=== PATIENT | female | born 1950 | race Caucasian/White ===

== ENCOUNTER → 2018-05-17 13:16 | Outpatient (CLI) | payer MEDICARE, SELFPAY ==
[2018-05-17 14:23] LABS: Alanine Aminotransferase 20 IU/L (9-52); Albumin 4.4 g/dL (3.5-5.0); Albumin Globulin Ratio 1.5 (1.0-2.8); Alkaline Phosphatase 125 U/L (38-126); Aspartate Aminotransferase 17 IU/L (14-36); Bilirubin Total 0.8 mg/dL (0.2-1.3); Blood Urea Nitrogen 20 mg/dL (7-17); Calcium 9.6 mg/dL (8.4-10.2); Carbon Dioxide 30 mmol/L (22-32); Chloride 99 mmol/L (98-107); Cholesterol 158 mg/dL (140-199); Estimated Glomerular Filt Rate > 60.0 mL/min (>60); Globulin 2.9 g/dL (1.7-4.1); Glucose 139 mg/dL (80-110); HDL Cholesterol 42 mg/dL (40-60); HEMOLYSIS < 15 (0-50); LDL Cholesterol Calculated 85 mg/dL (<100); Potassium 4.2 mmol/L (3.4-5.1); Sodium 140 mmol/L (137-145); Total Protein 7.3 g/dL (6.3-8.2); Triglycerides 155 mg/dL (35-150)
[2018-05-17 14:27] LABS: Hemoglobin A1C% w Est Avg Glu 7.3 % (4.0-6.0)
== END ==
PROVIDERS: Family Provider Physician Assistant; PCP Physician Assistant; Visit Provider Physician Assistant
DX: I10 Essential (primary) hypertension (principal); E78.2 Mixed hyperlipidemia; E11.9 Type 2 diabetes mellitus without complications
CPT/HCPCS: 36415; 80053; 80061; 83036

== ENCOUNTER 2018-07-01 17:57 | Emergency (ER) | payer MEDICARE, SELFPAY ==
[2018-07-01 18:07] VITALS: BP 148/80; PULSE 89; RESP 18; TEMP 37.7; O2SAT 95; BMI 34.3
[2018-07-01 19:51] VITALS: BP 154/81; PULSE 80; RESP 16; TEMP 37.9; O2SAT 100
[2018-07-01] MEDS: PENICILLIN 250 MG TAB PREPACK 1 BOTTLE MISC (20:04)
--- NOTE | 2018-07-02 05:56 | ED_ITS ---
HPI - Dental/Oral General Chief complaint: Dental/Oral Stated complaint: ABCESS TOOTH Time Seen by Provider: 07/01/18 18:05 Source: patient Mode of arrival: ambulatory Limitations: no limitations History of Present Illness HPI Narrative: 68F with extensive dental history presents with L sided dental pain and facial swelling. Patient denies any fever or chills. This has been worsening over the past few days and the patient plans to find a dentist shortly MD Complaint: tooth pain 2 1. Onset (ago): day(s) Duration: constant Severity: mild Relieving factors: nothing Exacerbating factors: nothing Context: history of dental caries and poor dental care Treatment prior to arrival: none Related Data Home Medications Medication Instructions Recorded Confirmed [BACLOFEN] 10 mg PO PRN PRN #0 12/22/16 hydrocodone-acetaminophen 0 tab PO Q6HP PRN #0 12/22/16 morphine 15 mg PO TID #0 12/22/16 Previous Rx's Medication Instructions Recorded Spacer: Inhaler Spacer Device ea BID #1 10/12/16 pneumoc 13-jing conj-dip cr(PF) 0.5 ml IM X1 #1 ea 10/12/16 [Prevnar 13 (PF)] zoster vaccine live (PF) [Zostavax 0.5 ml SQ X1 #0.5 ml 10/12/16 (PF)] fluticasone [Flovent HFA] 1 puff INH Q12H #1 inh 10/17/16 albuterol sulfate [Ventolin HFA] 2 puff INH Q4-6HP PRN #1 ea 10/19/16 CPAP: CPAP/PAP Full Face Mask ea #1 12/25/16 metformin [Glucophage] 500 mg PO BIDCC #60 tab 06/13/17 atorvastatin [Lipitor] 20 mg PO HS #90 tab 07/26/17 duloxetine 30 mg PO QDAY #90 cap 08/23/17 lamotrigine [Lamictal] 300 mg PO Q DAY #135 tab 08/23/17 Glucose: Test Strips 0 str BID #60 str 10/03/17 Lancet: Device 0 dev BID #200 10/03/17 hydrochlorothiazide 12.5 mg PO BID #90 tab 10/12/17 levothyroxine 137 mcg PO QDAY #30 tab 11/16/17 cholecalciferol (vitamin D3) 1,000 iu PO QDAY #100 tab 12/20/17 [Vitamin D3] trazodone 100 mg tablet 100 - 300 mg PO HS #60 tab 04/18/18 duloxetine 60 mg capsule,delayed 60 mg PO QDAY #90 cap 05/11/18 release omeprazole 20 mg PO BID #60 cap 06/01/18 penicillin V potassium 500 mg PO QID #28 tab 07/01/18 Allergies Allergy/AdvReac Type Severity Reaction Status Date / Time No Known Drug Allergies Allergy Verified 07/01/18 18:10 Review of Systems Review of Systems All systems reviewed & are unremarkable except as noted in HPI and below Constitutional Denies chills, Denies fever(s), Denies lethargy and Denies weakness Eyes Denies change in vision, Denies eye discharge, Denies irritation and Denies loss of vision ENT Ears, Nose, Mouth, and Throat: Denies change in voice, Reports dental pain, Reports facial pain, Denies neck pain and Denies sore throat Cardiovascular Denies chest pain, Denies irregular heart rhythm, Denies lightheadedness, Denies palpitations, Denies dyspnea, Denies dyspnea on exertion and Denies orthopnea Respiratory Denies cough, Denies dyspnea, Denies dyspnea on exertion and Denies wheezing Gastrointestinal Gastrointestinal: Denies abdominal pain, Denies change in bowel habits, Denies diarrhea, Denies nausea and Denies vomiting Genitourinary Denies hematuria, Denies flank pain, Denies urinary incontinence and Denies urinary urgency Musculoskeletal Denies neck pain Integumentary/Breasts Denies pruritus, Denies erythema, Denies rash and Denies wounds Neurologic Denies confusion, Denies loss of vision and Denies weakness Psychiatric Denies anxiety, Denies confusion, Denies depression, Denies homicidal ideation and Denies suicidal ideation Endocrine Denies palpitations Hematologic/Lymphatic Denies easy bruising Allergic/Immunologic Denies wheezing PFSH Social History Smoking Status: Never smoker Exam Narrative Exam Narrative: GEN: AOx3 and in mild distress FACE: very mild L facial swelling without warmth or redness ORAL: poor dentition throughout, but no obvious abscess EYES: Pupils are equal, round, and reactive to light and accommodation. Extraoccular muscles are intact bilaterally. There is no subconjunctival hemorrhage or exudate. CHEST: Lungs are clear to auscultation bilaterally and free of wheezes, rales, or rhonchi. Heart rate is regular rhythm, there are no murmurs, clicks, rubs, or gallops. There is no chest wall tenderness. ABD: Abdomen is soft and nontender. There is no guarding or rebound. Bowel sounds are normal in all 4 quadrants. There is no mass or organomegaly. EXT: Full painless ROM of all extremities with no loss of sensation or strength. SKIN: Warm, pink, and dry. No erythema or rash Initial Vital Signs Initial Vital Signs: Vital Signs Temperature 99.9 F H 07/01/18 18:07 Pulse Rate 89 07/01/18 18:07 Respiratory Rate 18 07/01/18 18:07 Blood Pressure 148/80 H 07/01/18 18:07 Pulse Oximetry 95 07/01/18 18:07 Course Orders Ordered: Discontinued Medications Penicillin V Potassium (Pen Vk (250 Mg/5 Ml) Prepack) 1 bottle MISC SEEINSTR ONE Stop: 07/01/18 19:30 Last Admin: 07/01/18 20:04 Dose: Not Given Penicillin V Potassium (Penicillin Vk 250mg Tab Prepack) 1 bottle MISC SEEINSTR ONE Stop: 07/01/18 19:54 Last Admin: 07/01/18 20:04 Dose: 1 bottle Discharge Plan Departure Patient Disposition: Home Clinical Impression: Abscess, dental Discharge Date/Time: 07/01/18 20:10 Interventions: ED Discharge Assessment Last Done: 07/01/18 20:09 Instructions: DI for Tooth Abscess Activity Restrictions/Additional Instructions: *You have been diagnosed with [ Dental abscess ] *What to do: *Take medications as directed *Follow up with your dental provider in 2-3 days, call for an appointment. Let them know you were seen in the Emergency Department and that we ask that you be seen in follow up *Return to ER if you should have any new, worsening or concerning symptoms Prescriptions: New penicillin V potassium 500 mg tablet 500 mg PO QID Qty: 28 RF: 0 No Action Spacer: Inhaler Spacer Device BID Qty: 1 RF: 0 pneumoc 13-jing conj-dip cr(PF) [Prevnar 13 (PF)] 0.5 ML syringe 0.5 ml IM X1 Qty: 1 RF: 0 zoster vaccine live (PF) [Zostavax (PF)] 19,400 UNIT/0.65 ML suspension for reconstitution 0.5 ml SQ X1 Qty: 0.5 RF: 0 fluticasone [Flovent HFA] 12 GM HFA aerosol inhaler 1 puff INH Q12H Qty: 1 RF: 3 albuterol sulfate [Ventolin HFA] 90 MCG/PUFF HFA aerosol inhaler 2 puff INH Q4-6HP PRNQty: 1 RF: 3 [BACLOFEN] 10 mg PO PRN PRNQty: 0 RF: 0 hydrocodone-acetaminophen 5 MG/325 MG tablet PO Q6HP PRNQty: 0 RF: 0 morphine 15 MG tablet 15 mg PO TID Qty: 0 RF: 0 CPAP: CPAP/PAP Full Face Mask Qty: 1 RF: 0 metformin [Glucophage] 500 MG tablet 500 mg PO BIDCC Qty: 60 RF: 2 atorvastatin [Lipitor] 20 MG tablet 20 mg PO HS Qty: 90 RF: 3 lamotrigine [Lamictal] 200 MG tablet 300 mg PO Q DAY Qty: 135 RF: 3 duloxetine 30 MG capsule,delayed release(DR/EC) 30 mg PO QDAY Qty: 90 RF: 3 Glucose: Test Strips BID Qty: 60 RF: 6 Lancet: Device BID Qty: 200 RF: 3 hydrochlorothiazide 25 MG tablet 12.5 mg PO BID Qty: 90 RF: 3 levothyroxine 137 MCG tablet 137 mcg PO QDAY Qty: 30 RF: 3 cholecalciferol (vitamin D3) [Vitamin D3] 1,000 UNIT tablet 1,000 iu PO QDAY Qty: 100 RF: 3 trazodone 100 mg tablet 100 - 300 mg PO HS Qty: 60 RF: 3 duloxetine 60 mg capsule,delayed release(DR/EC) 60 mg PO QDAY Qty: 90 RF: 0 omeprazole 20 mg capsule,delayed release(DR/EC) 20 mg PO BID Qty: 60 RF: 3 Referrals: Kaylin Paulino PA-C [Primary Care Provider] -
== END 2018-07-01 20:10 | disposition home or self-care (01) ==
PROVIDERS: Emergency Provider Emergency Medicine; Family Provider Physician Assistant; PCP Physician Assistant
DX: K04.7 Periapical abscess without sinus (principal)
CPT/HCPCS: 99282

== ENCOUNTER → 2018-11-02 16:24 | Outpatient (CLI) | payer MEDICARE, SELFPAY ==
[2018-11-02 17:47] LABS: BUN Creatinine Ratio 28.3 (6-22); Blood Urea Nitrogen 17 mg/dL (7-17); Calcium 9.4 mg/dL (8.4-10.2); Carbon Dioxide 30 mmol/L (22-32); Chloride 97 mmol/L (98-107); Estimated Glomerular Filt Rate > 60.0 mL/min (>60); Glucose 141 mg/dL (80-110); HEMOLYSIS < 15 (0-50); Sodium 139 mmol/L (137-145)
[2018-11-02 17:57] LABS: Hemoglobin A1C% w Est Avg Glu 7.5 % (4.0-6.0)
[2018-11-02 18:29] LABS: Microalbumi Creatinin Ratio Ur 10.5 ug/mg CR (<30); Microalbumin Urine Random 0.9 mg/dL (0-1.6)
[2018-11-06 14:41] LABS: Fecal Immunochemical Test DETECTED
== END ==
PROVIDERS: Family Provider Physician Assistant; PCP Physician Assistant; Visit Provider Physician Assistant
DX: E11.65 Type 2 diabetes mellitus with hyperglycemia (principal); Z12.11 Encounter for screening for malignant neoplasm of colon
CPT/HCPCS: 36415; 80048; 82043; 82274; 82570; 83036

== ENCOUNTER → 2019-01-23 16:12 | Outpatient (CLI) | payer MEDICARE, SELFPAY ==
[2019-01-23 18:23] LABS: Blood Urea Nitrogen 16 mg/dL (7-17); Calcium 10.2 mg/dL (8.4-10.2); Carbon Dioxide 30 mmol/L (22-32); Chloride 96 mmol/L (98-107); Estimated Glomerular Filt Rate > 60.0 mL/min (>60); Glucose 131 mg/dL (80-110); HEMOLYSIS < 15 (0-50); Potassium 5.2 mmol/L (3.4-5.1); Sodium 138 mmol/L (137-145)
== END ==
PROVIDERS: Family Provider Physician Assistant; PCP Physician Assistant; Visit Provider Physician Assistant
DX: E11.65 Type 2 diabetes mellitus with hyperglycemia (principal)
CPT/HCPCS: 36415; 80048; 83036

== ENCOUNTER → 2019-07-30 13:10 | Outpatient (CLI) | payer MEDICARE, SELFPAY ==
[2019-07-30 14:31] LABS: Alanine Aminotransferase 20 IU/L (9-52); Albumin 4.6 g/dL (3.5-5.0); Albumin Globulin Ratio 1.4 (1.0-2.8); Alkaline Phosphatase 125 U/L (38-126); Aspartate Aminotransferase 26 IU/L (14-36); Bilirubin Total 0.8 mg/dL (0.2-1.3); Blood Urea Nitrogen 17 mg/dL (7-17); Calcium 9.7 mg/dL (8.4-10.2); Carbon Dioxide 32 mmol/L (22-32); Chloride 98 mmol/L (98-107); Cholesterol 135 mg/dL (140-199); Estimated Glomerular Filt Rate > 60.0 mL/min (>60); Globulin 3.2 g/dL (1.7-4.1); Glucose 129 mg/dL (80-110); HDL Cholesterol 43 mg/dL (40-60); HEMOLYSIS < 15 (0-50); LDL Cholesterol Calculated 71 mg/dL (<100); Potassium 4.2 mmol/L (3.4-5.1); Sodium 138 mmol/L (137-145); Total Protein 7.8 g/dL (6.3-8.2); Triglycerides 103 mg/dL (35-150)
[2019-07-30 16:20] LABS: Creatinine Urine Random 61.8 mg/dL
[2019-07-30 16:28] LABS: Microalbumi Creatinin Ratio Ur 9.7 ug/mg CR (<30); Microalbumin Urine Random < 0.6 mg/dL (0-1.6)
[2019-07-30 16:57] LABS: Thyroid Stimulating Hormone 2.42 uIU/mL (0.47-4.68)
== END ==
PROVIDERS: PCP Physician Assistant; Visit Provider Physician Assistant
DX: E03.9 Hypothyroidism, unspecified (principal); E11.9 Type 2 diabetes mellitus without complications; E78.2 Mixed hyperlipidemia; I10 Essential (primary) hypertension
CPT/HCPCS: 36415; 80053; 80061; 82043; 82570; 83036; 84443

== ENCOUNTER → 2019-11-27 09:28 | Outpatient (CLI) | payer MEDICARE, SELFPAY ==
[2019-11-27 10:13] LABS: Add Manual Diff / Slide Review NO; Basophils Absolute Auto 0 /uL (0-100); Basophils Percent Auto 0.5 % (0-2); Eosinophils Absolute Auto 300 /uL (0-450); Eosinophils Percent Auto 3.6 % (2-4); Hematocrit 33.6 % (36-46); Hemoglobin 10.7 g/dL (12.0-16.0); Lymphocytes Absolute Auto 2000 /uL (1100-4500); Lymphocytes Percent Auto 26.9 % (25-40); Mean Corpuscular HGB Conc 31.8 % (30-36); Mean Corpuscular Hemoglobin 21.9 PG (26-34); Mean Corpuscular Volume 68.9 fL (80-100); Monocytes Absolute Auto 400 /uL (0-900); Monocytes Percent Auto 6.2 % (3-14); Neutrophils Absolute Auto 4600 /uL (1500-7000); Neutrophils Percent Auto 62.8 % (50-75); Platelet Count 377 X10^3/uL (150-400); Red Blood Cell Count 4.88 X10^6/uL (4.0-5.2); Red Cell Distribution Width 17.5 % (11.6-14.8); White Blood Cell Count 7.3 X10^3/uL (4.5-11.0)
[2019-11-27 10:44] LABS: Blood Urea Nitrogen 18 mg/dL (7-17); Calcium 9.8 mg/dL (8.4-10.2); Carbon Dioxide 31 mmol/L (22-32); Chloride 98 mmol/L (98-107); Estimated Glomerular Filt Rate > 60.0 mL/min (>60); Glucose 162 mg/dL (80-110); HEMOLYSIS < 15 (0-50); Potassium 4.5 mmol/L (3.4-5.1); Sodium 138 mmol/L (137-145)
[2019-11-27 11:02] LABS: Anisocytosis 1+
[2019-11-27 11:03] LABS: Hypochromasia 1+; Microcytosis 1+
[2019-11-28 09:18] LABS: Iron 23 ug/dL (37-170)
== END ==
PROVIDERS: PCP Physician Assistant; Visit Provider Physician Assistant
DX: I10 Essential (primary) hypertension (principal); Z51.81 Encounter for therapeutic drug level monitoring; D50.9 Iron deficiency anemia, unspecified
CPT/HCPCS: 36415; 80048; 83540; 85025

== ENCOUNTER → 2020-04-02 16:57 | Outpatient (CLI) | payer MEDICARE, MEDICAID, SELFPAY ==
[2020-04-02 17:49] LABS: Add Manual Diff / Slide Review NO; Basophils Absolute Auto 0 /uL (0-100); Basophils Percent Auto 0.5 % (0-2); Eosinophils Absolute Auto 400 /uL (0-450); Eosinophils Percent Auto 4.5 % (2-4); Hematocrit 38.5 % (36-46); Hemoglobin 12.4 g/dL (12.0-16.0); Lymphocytes Absolute Auto 2600 /uL (1100-4500); Lymphocytes Percent Auto 31.6 % (25-40); Mean Corpuscular HGB Conc 32.1 % (30-36); Mean Corpuscular Hemoglobin 23.4 PG (26-34); Monocytes Absolute Auto 400 /uL (0-900); Monocytes Percent Auto 5.4 % (3-14); Neutrophils Absolute Auto 4700 /uL (1500-7000); Platelet Count 397 X10^3/uL (150-400); Red Blood Cell Count 5.28 X10^6/uL (4.0-5.2); Red Cell Distribution Width 16.8 % (11.6-14.8); White Blood Cell Count 8.1 X10^3/uL (4.5-11.0)
[2020-04-02 18:00] LABS: Alanine Aminotransferase 21 IU/L (<35); Albumin 4.6 g/dL (3.5-5.0); Albumin Globulin Ratio 1.4 (1.0-2.8); Alkaline Phosphatase 123 U/L (38-126); Aspartate Aminotransferase 22 IU/L (14-36); BUN Creatinine Ratio 28.8 (6-22); Bilirubin Total 0.6 mg/dL (0.2-1.3); Blood Urea Nitrogen 15 mg/dL (7-17); Carbon Dioxide 29 mmol/L (22-32); Chloride 99 mmol/L (98-107); Estimated Glomerular Filt Rate > 60.0 mL/min (>60); Globulin 3.2 g/dL (1.7-4.1); Glucose 297 mg/dL (80-110); HEMOLYSIS < 15 (0-50); Potassium 4.3 mmol/L (3.4-5.1); Sodium 137 mmol/L (137-145); Total Protein 7.8 g/dL (6.3-8.2)
[2020-04-02 18:01] LABS: HEMOLYSIS < 15 (0-50); Iron 37 ug/dL (37-170)
[2020-04-02 18:11] LABS: Percent Iron Saturation 8 % (15-50); Total Iron Binding Capacity 467 ug/dL (265-497); Transferrin 379 mg/dL (206-381)
[2020-04-02 18:35] LABS: Ferritin 6 ng/mL (11-264)
== END ==
PROVIDERS: PCP Physician Assistant; Referring Provider Family Medicine; Visit Provider Family Medicine
DX: D50.9 Iron deficiency anemia, unspecified (principal); E78.2 Mixed hyperlipidemia
CPT/HCPCS: 36415; 80053; 82728; 83540; 83550; 85025

== ENCOUNTER → 2020-04-03 13:07 | Outpatient (CLI) | payer MEDICARE, MEDICAID, SELFPAY ==
[2020-04-04 02:56] LABS: Hemoglobin A1C% w Est Avg Glu 8.1 % (4.0-6.0)
== END ==
PROVIDERS: PCP Physician Assistant; Visit Provider Nurse Practitioner Family
DX: E11.65 Type 2 diabetes mellitus with hyperglycemia (principal)
CPT/HCPCS: 83036

== ENCOUNTER → 2020-10-09 16:12 | Outpatient (CLI) | payer MEDICARE, MEDICAID, SELFPAY ==
[2020-10-09 17:16] LABS: Hemoglobin A1C% w Est Avg Glu 6.6 % (4.0-6.0)
[2020-10-09 17:46] LABS: Alanine Aminotransferase 38 IU/L (<35); Albumin 4.5 g/dL (3.5-5.0); Albumin Globulin Ratio 1.4 (1.0-2.8); Alkaline Phosphatase 167 U/L (38-126); Aspartate Aminotransferase 30 IU/L (14-36); BUN Creatinine Ratio 36.5 (6-22); Bilirubin Total 0.7 mg/dL (0.2-1.3); Blood Urea Nitrogen 19 mg/dL (7-17); Calcium 9.8 mg/dL (8.4-10.2); Carbon Dioxide 31 mmol/L (22-32); Chloride 98 mmol/L (98-107); Estimated Glomerular Filt Rate > 60.0 mL/min (>60); Globulin 3.3 g/dL (1.7-4.1); Glucose 110 mg/dL (80-110); HEMOLYSIS < 15 (0-50); Potassium 4.2 mmol/L (3.4-5.1); Sodium 136 mmol/L (137-145); Total Protein 7.8 g/dL (6.3-8.2)
[2020-10-09 18:07] LABS: Creatinine Urine Random 56.8 mg/dL
[2020-10-09 18:14] LABS: Microalbumin Urine Random < 0.6 mg/dL (0-1.6)
[2020-10-09 18:16] LABS: Thyroid Stimulating Hormone 1.73 uIU/mL (0.47-4.68)
== END ==
PROVIDERS: PCP Family Medicine; Referring Provider Family Medicine; Visit Provider Family Medicine
DX: E03.9 Hypothyroidism, unspecified (principal); E11.65 Type 2 diabetes mellitus with hyperglycemia; I10 Essential (primary) hypertension
CPT/HCPCS: 36415; 80053; 82043; 82570; 83036; 84443

== ENCOUNTER → 2021-04-05 09:16 | Outpatient (CLI) | payer MEDICARE, MEDICAID, SELFPAY ==
[2021-04-05 10:32] LABS: Hemoglobin A1C% w Est Avg Glu 6.5 % (4.0-6.0)
[2021-04-05 10:33] LABS: Add Manual Diff / Slide Review NO; Basophils Absolute Auto 0 /uL (0-100); Basophils Percent Auto 0.4 % (0-2); Eosinophils Absolute Auto 300 /uL (0-450); Eosinophils Percent Auto 3.1 % (2-4); Hematocrit 38.1 % (36-46); Hemoglobin 12.2 g/dL (12.0-16.0); Lymphocytes Absolute Auto 2100 /uL (1100-4500); Lymphocytes Percent Auto 23.3 % (25-40); Mean Corpuscular HGB Conc 32.2 % (30-36); Mean Corpuscular Hemoglobin 25.5 PG (26-34); Mean Corpuscular Volume 79.4 fL (80-100); Monocytes Absolute Auto 700 /uL (0-900); Neutrophils Absolute Auto 5900 /uL (1500-7000); Neutrophils Percent Auto 65.2 % (50-75); Platelet Count 376 X10^3/uL (150-400); Red Cell Distribution Width 17.3 % (11.6-14.8); White Blood Cell Count 9.1 X10^3/uL (4.5-11.0)
[2021-04-05 10:45] LABS: Alanine Aminotransferase 29 IU/L (<35); Albumin 4.2 g/dL (3.5-5.0); Albumin Globulin Ratio 1.4 (1.0-2.8); Alkaline Phosphatase 112 U/L (38-126); Aspartate Aminotransferase 39 IU/L (14-36); BUN Creatinine Ratio 41.2 (6-22); Bilirubin Total 0.5 mg/dL (0.2-1.3); Blood Urea Nitrogen 21 mg/dL (7-17); Calcium 9.5 mg/dL (8.4-10.2); Carbon Dioxide 32 mmol/L (22-32); Chloride 96 mmol/L (98-107); Cholesterol 143 mg/dL (140-199); Estimated Glomerular Filt Rate > 60.0 mL/min (>60); Globulin 2.9 g/dL (1.7-4.1); Glucose 128 mg/dL (80-110); HDL Cholesterol 41 mg/dL (40-60); HEMOLYSIS < 15 (0-50); LDL Cholesterol Calculated 64 mg/dL (<100); Potassium 4.1 mmol/L (3.4-5.1); Sodium 136 mmol/L (137-145); Total Protein 7.1 g/dL (6.3-8.2); Triglycerides 191 mg/dL (35-150)
[2021-04-05 11:29] LABS: Thyroid Stimulating Hormone 2.55 uIU/mL (0.47-4.68)
== END ==
PROVIDERS: PCP Family Medicine; Referring Provider Family Medicine; Visit Provider Family Medicine
DX: E03.9 Hypothyroidism, unspecified (principal); E11.65 Type 2 diabetes mellitus with hyperglycemia; I10 Essential (primary) hypertension
CPT/HCPCS: 36415; 80053; 80061; 83036; 84443; 85025

== ENCOUNTER → 2021-10-15 07:57 | Outpatient (CLI) | payer MEDICARE, MEDICAID, SELFPAY ==
[2021-10-15 08:54] LABS: Hemoglobin A1C% w Est Avg Glu 5.9 % (4.0-6.0)
[2021-10-15 09:24] LABS: Alanine Aminotransferase 15 IU/L (<35); Albumin 4.4 g/dL (3.5-5.0); Albumin Globulin Ratio 1.8 (1.0-2.8); Alkaline Phosphatase 83 U/L (38-126); Aspartate Aminotransferase 18 IU/L (14-36); BUN Creatinine Ratio 33.3 (6-22); Bilirubin Total 0.4 mg/dL (0.2-1.3); Blood Urea Nitrogen 20 mg/dL (7-17); Calcium 9.7 mg/dL (8.4-10.2); Carbon Dioxide 31 mmol/L (22-32); Chloride 101 mmol/L (98-107); Estimated Glomerular Filt Rate > 60.0 mL/min (>60); Globulin 2.5 g/dL (1.7-4.1); Glucose 132 mg/dL (80-110); HEMOLYSIS < 15 (0-50); Potassium 3.8 mmol/L (3.4-5.1); Sodium 140 mmol/L (137-145); Total Protein 6.9 g/dL (6.3-8.2)
[2021-10-15 09:30] LABS: Free T4, Direct Thyroxine 1.57 ng/dL (0.78-2.19)
[2021-10-15 09:44] LABS: Thyroid Stimulating Hormone 1.91 uIU/mL (0.47-4.68)
== END ==
PROVIDERS: PCP Family Medicine; Referring Provider Family Medicine; Visit Provider Family Medicine
DX: E11.65 Type 2 diabetes mellitus with hyperglycemia (principal); E03.9 Hypothyroidism, unspecified; E78.2 Mixed hyperlipidemia; I10 Essential (primary) hypertension
CPT/HCPCS: 36415; 80053; 83036; 84439; 84443

== ENCOUNTER → 2022-05-13 11:06 | Outpatient (CLI) | payer MEDICARE, MEDICAID, SELFPAY ==
[2022-05-13 11:34] LABS: Hemoglobin A1C% w Est Avg Glu 6.6 % (4.0-6.0)
[2022-05-13 12:16] LABS: Creatinine Urine Random 39.4 mg/dL
[2022-05-13 12:18] LABS: Alanine Aminotransferase 34 IU/L (<35); Albumin 4.2 g/dL (3.5-5.0); Albumin Globulin Ratio 1.6 (1.0-2.8); Alkaline Phosphatase 137 U/L (38-126); Aspartate Aminotransferase 23 IU/L (14-36); BUN Creatinine Ratio 27.8 (6-22); Bilirubin Total 0.6 mg/dL (0.2-1.3); Blood Urea Nitrogen 15 mg/dL (7-17); Calcium 9.3 mg/dL (8.4-10.2); Carbon Dioxide 32 mmol/L (22-32); Chloride 100 mmol/L (98-107); Estimated Glomerular Filt Rate > 60 mL/min (>60); Globulin 2.6 g/dL (1.7-4.1); Glucose 132 mg/dL (80-110); HEMOLYSIS < 15 (0-50); Potassium 4.2 mmol/L (3.4-5.1); Sodium 138 mmol/L (137-145); Total Protein 6.8 g/dL (6.3-8.2)
[2022-05-13 12:22] LABS: Microalbumin Urine Random < 0.6 mg/dL (0-1.6)
== END ==
PROVIDERS: PCP Family Medicine; Referring Provider Family Medicine; Visit Provider Family Medicine
DX: E11.65 Type 2 diabetes mellitus with hyperglycemia (principal); I10 Essential (primary) hypertension
CPT/HCPCS: 36415; 80053; 82043; 82570; 83036

== ENCOUNTER → 2022-12-20 10:36 | Outpatient (CLI) | payer MEDICARE, MEDICAID, SELFPAY ==
[2022-12-20 12:47] LABS: Hemoglobin A1C% w Est Avg Glu 6.7 % (4.0-6.0)
[2022-12-20 13:13] LABS: Alanine Aminotransferase 17 IU/L (<35); Albumin 4.3 g/dL (3.5-5.0); Albumin Globulin Ratio 1.4 (1.0-2.8); Alkaline Phosphatase 97 U/L (38-126); Aspartate Aminotransferase 19 IU/L (14-36); BUN Creatinine Ratio 40.4 (6-22); Bilirubin Total 0.4 mg/dL (0.2-1.3); Blood Urea Nitrogen 19 mg/dL (7-17); Calcium 8.8 mg/dL (8.4-10.2); Carbon Dioxide 30 mmol/L (22-32); Chloride 99 mmol/L (98-107); Estimated Glomerular Filt Rate > 60 mL/min (>60); Glucose 116 mg/dL (80-110); HEMOLYSIS < 15 (0-50); Potassium 3.7 mmol/L (3.4-5.1); Sodium 138 mmol/L (137-145); Total Protein 7.3 g/dL (6.3-8.2)
== END ==
PROVIDERS: PCP Family Medicine; Referring Provider Family Medicine; Visit Provider Family Medicine
DX: E11.65 Type 2 diabetes mellitus with hyperglycemia (principal)
CPT/HCPCS: 36415; 80053; 83036

== ENCOUNTER 2023-05-29 14:34 | Emergency (ER) | payer MEDICARE, MEDICAID, SELFPAY ==
[2023-05-29 14:43] VITALS: BP 145/67; PULSE 65; RESP 18; TEMP 36.7; O2SAT 95
--- NOTE | 2023-05-29 15:00 | DI.CT.S_ITS ---
PROCEDURE: CT HEAD/BRAIN WO CON INDICATIONS: fall, hit head TECHNIQUE: Noncontrast 4.5 mm thick angled axial sections acquired from the foramen magnum to the vertex, with coronal and sagittal reformats. For radiation dose reduction, the following was used: automated exposure control, adjustment of mA and/or kV according to patient size. COMPARISON: None. FINDINGS: Image quality: Excellent. CSF spaces: Basal cisterns are patent. No extra-axial fluid collections. The ventricles are symmetric in size and shape. Brain: There is a small focus of hyperdensity in the inferior right frontal lobe just cranial to the orbit, potentially a small intraparenchymal contusion. No other hemorrhage is seen. There is cerebral volume loss for age, with resultant ventricular and sulcal prominence. There are periventricular and deep white matter chronic small vessel ischemic changes. There is intracranial internal carotid artery atherosclerosis. Skull and face: Small left occipital subcutaneous hematoma without underlying fracture. Sinuses: Visualized sinuses and mastoids are clear. IMPRESSION: 1. Questionable small focus of intraparenchymal hemorrhage without adjacent edema involving the right inferior frontal lobe, potentially representing a contrecoup injury. Given that artifact is also possible, close clinical follow-up and repeat head CT in 4-6 hours is recommended. 2. Discussed with Dr. Jimenez in the emergency room at 15:58 hours. Dictated by: Dana Jenkins M.D. on 05/29/2023 at 15:51 Approved by: Dana Jenkins M.D. on 05/29/2023 at 16:00
--- NOTE | 2023-05-29 15:00 | DI.CT.S_ITS ---
PROCEDURE: CT CERVICAL SPINE WO CON INDICATIONS: fall, hit head TECHNIQUE: Noncontrast 3 mm thick sections acquired from the skull base to the T4 level. Sagittal and coronal reformats were then constructed. For radiation dose reduction, the following was used: automated exposure control, adjustment of mA and/or kV according to patient size. COMPARISON: None. FINDINGS: Image quality: Excellent. Bones: No fractures or dislocations. Visualized superior ribs are intact. Prominent anterior and mild posterior endplate spurring of C5 through C7. Soft tissues: Prevertebral soft tissues are normal in thickness. No paravertebral hematomas. No apical pneumothoraces. IMPRESSION: 1. No CT evidence of acute cervical spine trauma. 2. Degenerative endplate spurring in the mid to lower thoracic spine. Dictated by: Dana Jenkins M.D. on 05/29/2023 at 16:00 Approved by: Dana Jenkins M.D. on 05/29/2023 at 16:03
--- NOTE | 2023-05-29 17:41 | ED.FALL ---
HPI - Fall <Talia Saleem PA-C - Last Filed: 05/29/23 19:54> General Chief Complaint: Fall Stated Complaint: SENT BY [facility]/HEAD INJ Time Seen by Provider: 05/29/23 14:38 History of Present Illness HPI Narrative: 73-year-old woman with history of DM type II, hypertension and hypothyroid presents from the walk-in clinic with concern for a fall with head injury 2 days ago. Patient states she was at home and she thinks she had a mechanical fall and went backwards striking the middle back of her head against the ?corner of a wall. She states she did not lose consciousness and was able to get up just fine on her own, she has not had any symptoms since then except for mild discomfort and tenderness at the site where her head hit the wall--where she has some swelling and ?a goose egg?. She states she was concerned that she might have a concussion so she went to the walk-in clinic who sent her to the emergency department for further evaluation given her age and the fact that she had head injury. She specifically denies nausea, vomiting, headaches, vision change, neck pain, numbness or tingling or weakness in her extremities, light sensitivity, coordination difficulty or any other symptoms. Related Data Home Medications Medication Instructions Recorded Confirmed [BACLOFEN] 10 mg PO PRN PRN ##0 12/22/16 02/20/23 Aspirin See Rx Instructions .Route .COMPLEX 07/16/18 02/20/23 Gabapentin See Rx Instructions .Route .COMPLEX 07/16/18 02/20/23 Hydrocodone 5 mg / Acetaminophen See Rx Instructions .Route .COMPLEX 07/16/18 02/20/23 325 mg diclofenac sodium [Arthritis Pain topical 07/21/22 02/20/23 (diclofenac)] lidocaine [Blue-Emu Lidocaine topical 07/21/22 02/20/23 Patch] morphine 15 mg immediate release 15 mg PO BID #0 tabs 07/21/22 02/20/23 tablet valacyclovir 500 mg tablet 1,000 mg PO BID Herpes zoster in 07/21/22 02/20/23 right eye Previous Rx's Medication Instructions Recorded Spacer: Inhaler Spacer Device ea BID ##1 10/12/16 CPAP: CPAP/PAP Full Face Mask ea ##1 12/25/16 Disabled Parking Placard #1 ea 11/27/19 lancets #100 ea 06/22/21 terbinafine HCl 250 mg tablet 250 mg PO DAILY #90 tabs 06/22/21 lamotrigine 200 mg tablet 200 mg PO BID #180 tabs 06/21/22 (Lamictal) albuterol sulfate 90 mcg/actuation 2 puff inhalation Q6H PRN 07/21/22 aerosol inhaler shortness of breath or wheezing #6.7 grams empagliflozin 10 mg tablet 10 mg PO DAILY #90 tabs 07/21/22 (Jardiance) fluticasone propionate 110 2 puff inhalation BID PRN Asthma 07/21/22 mcg/actuation HFA aerosol inhaler #12 grams (Flovent HFA) hydrochlorothiazide 25 mg tablet See Rx Instructions .Route 07/21/22 .COMPLEX #90 ea pioglitazone 15 mg tablet See Rx Instructions .Route 07/21/22 .COMPLEX #90 tabs atorvastatin 20 mg tablet See Rx Instructions .Route 01/27/23 .COMPLEX #90 tabs Glucose Test Strips #100 ea 01/31/23 duloxetine 60 mg capsule,delayed See Rx Instructions .Route 01/31/23 release .COMPLEX #90 caps duloxetine 30 mg capsule,delayed See Rx Instructions .Route 02/24/23 release .COMPLEX #90 caps omeprazole 20 mg capsule,delayed See Rx Instructions .Route 02/27/23 release .COMPLEX #180 caps levothyroxine 137 mcg tablet See Rx Instructions .Route 02/28/23 .COMPLEX #90 tabs trazodone 100 mg tablet See Rx Instructions .Route 03/24/23 .COMPLEX #60 caps sitagliptin phosphate 50 See Rx Instructions .Route 05/01/23 mg-metformin 1,000 mg tablet .COMPLEX #180 tabs (Janumet) Allergies Allergy/AdvReac Type Severity Reaction Status Date / Time No Known Drug Allergies Allergy Verified 05/29/23 14:43 Review of Systems <Talia Saleem PA-C - Last Filed: 05/29/23 19:54> Review of Systems Narrative: See HPI Patient History <Talia Saleem PA-C - Last Filed: 05/29/23 19:54> Medical History (Updated 05/29/23 @ 23:34 by Amanda Christianson MD) Bipolar disorder Cataracts, bilateral (~07/2017) Chronic back pain Chronic GERD Depression Diabetes Hyperlipemia Hypertension Hypothyroidism Osteopenia (~01/2018) Scoliosis Sleep apnea Surgical History History of carpal tunnel release (1981) Hx of cholecystectomy (1988) Hx of hysterectomy (1994) Hx of spinal fusion (1963) Family History Father Marfan syndrome Mother Hypertension Dementia Brother Depression Chronic pain Sister Diabetes mellitus Sister Marfan syndrome Grandfather Alcoholism Grandmother No problems noted. Grandfather Marfan syndrome Grandmother Hip problem Social History Smoking Status: Never smoker second hand exposure: No alcohol intake: current (one beer a year.) substance use type: does not use Smoking Status: Never smoker alcohol intake frequency: 0-2 drinks per day Substance Use Type: does not use Exam <Talia Saleem PA-C - Last Filed: 05/29/23 19:54> Narrative Exam Narrative: GENERAL: 73 year old patient appears stated age. Well-developed patient, in mild distress. HEAD: There is an approximately 2 cm x 2 cm raised area that is tender on the patient's posterior mid scalp, difficult to visualize due to hair in the area, consistent with a scalp hematoma Otherwise Atraumatic. Normocephalic. EYES: Pupils equal round and reactive. Extraocular motions intact. No scleral icterus. No injection or drainage. ENT: Nose without bleeding, purulent drainage. Throat without erythema, tonsillar hypertrophy or exudate. Uvula midline. Airway patent. NECK: Trachea midline. Non tender CARDIOVASCULAR: Regular rate and rhythm without murmurs, gallops, or rubs. RESPIRATORY: Clear to auscultation. Breath sounds equal bilaterally. No wheezes, rales, or rhonchi. GASTROINTESTINAL: Abdomen soft, non-tender, nondistended. EXTREMITIES: No edema or joint tenderness. BACK: Nontender without deformity or crepitance. No flank tenderness. NEURO: AOx3. Cranial nerves 2-12 intact. 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 and strength bilaterally in all 4 extremities, negative arm drift SKIN: No rash or erythema of visible areas Initial Vital Signs Initial Vital Signs: Vital Signs Temperature 98.1 F 07/31/23 14:43 Pulse Rate 65 05/29/23 14:43 Respiratory Rate 18 05/29/23 14:43 Blood Pressure 145/67 H 05/29/23 14:43 Pulse Oximetry 95 05/29/23 14:43 Oxygen Delivery Method Room Air 05/29/23 14:43 <Amanda Christianson MD - Last Filed: 05/29/23 23:36> Initial Vital Signs Initial Vital Signs: Vital Signs Temperature 98.1 F 05/29/23 14:43 Pulse Rate 65 05/29/23 14:43 Respiratory Rate 18 05/29/23 14:43 Blood Pressure 145/67 H 05/29/23 14:43 Pulse Oximetry 95 05/29/23 14:43 Oxygen Delivery Method Room Air 05/29/23 14:43 Course <Talia Saleem PA-C - Last Filed: 05/29/23 19:54> Course Course Narrative: Report and hand off care to night attending physician Dr. Christianson who remains on shift in the emergency department with repeat CT noncontrast pending for 2099. 1954 Orders Ordered: ED Orders 05/29/23 15:00 CT cervical spine wo con Stat CT head/brain wo con Stat 05/29/23 21:00 CT head/brain wo con Stat Vital Signs Vital signs: Vital Signs - 8 hr 05/29/23 18:52 05/29/23 18:52 05/29/23 20:40 Pulse Rate 58 L 63 Respiratory Rate 16 Blood Pressure 118/58 L 126/60 Pulse Oximetry 97 95 Oxygen Delivery Method Room Air Room Air 05/29/23 22:03 Pulse Rate 61 Respiratory Rate 16 Blood Pressure 135/60 Pulse Oximetry 96 Oxygen Delivery Method Room Air <Amanda Christianson MD - Last Filed: 05/29/23 23:36> Orders Ordered: ED Orders 05/29/23 15:00 CT cervical spine wo con Stat CT head/brain wo con Stat 05/29/23 21:00 CT head/brain wo con Stat Vital Signs Vital signs: Vital Signs - 8 hr 05/29/23 18:52 05/29/23 18:52 05/29/23 20:40 Pulse Rate 58 L 63 Respiratory Rate 16 Blood Pressure 118/58 L 126/60 Pulse Oximetry 97 95 Oxygen Delivery Method Room Air Room Air 05/29/23 22:03 Pulse Rate 61 Respiratory Rate 16 Blood Pressure 135/60 Pulse Oximetry 96 Oxygen Delivery Method Room Air MDM - Fall <Talia Saleem PA-C - Last Filed: 05/29/23 19:54> Differential Diagnosis Differential diagnosis: Likely concussion without loss of consciousness and other (Intraparenchymal hemorrhage, scalp hematoma) Medical Records Attestation: I reviewed the patient's medical records. Imaging Data CT scan - head: My Impression: Agree with Radiology interpretation Radiologist's Impression: [address] [address] [address] Scan Report Signed Patient: Mary Hubbard MR#: [id number] : 1950 Acct:[id number] Age/Sex: 73 / F Date of Service: 05/29/23 Loc: ED Accession Number: [id number] ?? Procedure: CT head/brain wo con Ordering Provider: Talia Saleem P.A-C PROCEDURE:? CT HEAD/BRAIN WO CON ? INDICATIONS:? fall, hit head ? TECHNIQUE:? Noncontrast 4.5 mm thick angled axial sections acquired from the foramen magnum to the vertex, with coronal and sagittal reformats.? For radiation dose reduction, the following was used:? automated exposure control, adjustment of mA and/or kV according to patient size.? ? COMPARISON:? None. ? FINDINGS:? Image quality:? Excellent.? ? CSF spaces:? Basal cisterns are patent.? No extra-axial fluid collections.? The ventricles are symmetric in size and shape.? ? Brain:? There is a small focus of hyperdensity in the inferior right frontal lobe just cranial to the orbit, potentially a small intraparenchymal contusion.? No other hemorrhage is seen. ? There is cerebral volume loss for age, with resultant ventricular and sulcal prominence.? There are periventricular and deep white matter chronic small vessel ischemic changes.? There is intracranial internal carotid artery atherosclerosis.? ? Skull and face:? Small left occipital subcutaneous hematoma without underlying fracture. ? Sinuses:? Visualized sinuses and mastoids are clear.? ? IMPRESSION:? ? 1. Questionable small focus of intraparenchymal hemorrhage without adjacent edema involving the right inferior frontal lobe, potentially representing a contrecoup injury.? Given that artifact is also possible, close clinical follow-up and repeat head CT in 4-6 hours is recommended. ? 2. Discussed with Dr. Jimenez in the emergency room at 15:58 hours.? ? ? Dictated by: Dana Jenkins M.D. on 05/29/2023 at 15:51 ? ? Approved by: Dana Jenkins M.D. on 05/29/2023 at 16:00?? CT - cervical spine: My Impression: Agree with Radiology interpretation Radiologist's Impression: [address] [address] [address] Scan Report Signed Patient: Mary Hubbard MR#: [id number] : 1950 Acct:[id number] Age/Sex: 73 / F Date of Service: 05/29/23 Loc: ED Accession Number: [id number] ?? Procedure: CT cervical spine wo con Ordering Provider: Talia Saleem P.A-C PROCEDURE:? CT CERVICAL SPINE WO CON ? INDICATIONS:? fall, hit head ? TECHNIQUE:? Noncontrast 3 mm thick sections acquired from the skull base to the T4 level.? Sagittal and coronal reformats were then constructed.? For radiation dose reduction, the following was used:? automated exposure control, adjustment of mA and/or kV according to patient size.? ? COMPARISON:? None. ? FINDINGS:? Image quality:? Excellent.? ? Bones:? No fractures or dislocations.? Visualized superior ribs are intact.? Prominent anterior and mild posterior endplate spurring of C5 through C7.? ? Soft tissues:? Prevertebral soft tissues are normal in thickness.? No paravertebral hematomas.? No apical pneumothoraces.? ? ? IMPRESSION:? ? 1. No CT evidence of acute cervical spine trauma. ? 2. Degenerative endplate spurring in the mid to lower thoracic spine.? Dictated by: Dana Jenkins M.D. on 05/29/2023 at 16:00 ? ? Approved by: Dana Jenkins M.D. on 05/29/2023 at 16:03?? Treatment and disposition Shared decision making:: Shared decision-making was used in determining the plan for patient's evaluation today in the emergency department, for repeat imaging and monitoring MDM Narrative Medical decision making narrative: This is a well-appearing 73-year-old woman with a history of hypertension hyperlipidemia and type 2 diabetes who presents with concern for a fall at home 2 days ago without loss of consciousness with scalp hematoma and concern for needing further evaluation for possible concussion. Based on patient's age CT head and neck are obtained noncontrast. Her CT neck is unremarkable except for some chronic degenerative changes and spurring however her CT head does return concerning potentially for small intraparenchymal hemorrhage without adjacent edema or other changes, possibly consistent with a cool contrecoup injury. Based on this finding recommendation is for repeat CT in 6 hours. After discussion with the patient she is agreeable to staying in the emergency department for ongoing monitoring and repeat CT. Additional labs are not obtained as patient has no other concerning symptoms she is allowed to have some fluids, juice as she is not had food today and is a type [address] imaging obtained after 6 hours reveals <Amanda Christianson MD - Last Filed: 05/29/23 23:36> [facility] Narrative Medical decision making narrative: This is a well-appearing 73-year-old woman with a history of hypertension hyperlipidemia and type 2 diabetes who presents with concern for a fall at home 2 days ago without loss of consciousness with scalp hematoma and concern for needing further evaluation for possible concussion. Based on patient's age CT head and neck are obtained noncontrast. Her CT neck is unremarkable except for some chronic degenerative changes and spurring however her CT head does return concerning potentially for small intraparenchymal hemorrhage without adjacent edema or other changes, possibly consistent with a cool contrecoup injury. Based on this finding recommendation is for repeat CT in 6 hours. After discussion with the patient she is agreeable to staying in the emergency department for ongoing monitoring and repeat CT. Additional labs are not obtained as patient has no other concerning symptoms she is allowed to have some fluids, juice as she is not had food today and is a type [address] Christianson: Care is assumed of this 73-year-old woman who fell approximately 48 hours ago. She is independently examined. CT scan initially showed a small parenchymal hemorrhage inferior right frontal lobe and recommendation was to repeat scan at 3:00 a.m. to make sure it was not changing. Repeat scan is reviewed and is not changing. Findings reviewed with the patient and her son. She is minimally symptomatic no headaches and no left-sided weakness. Recommended avoiding any aspirin or nonsteroidals for the next week. Went over signs and symptoms of worsening intracranial bleeding and reasons to return to the emergency department. She is safe for discharge home Discharge Plan Departure Patient Disposition: Home Clinical Impression: Cerebral parenchymal hemorrhage, Fall Activity Restrictions/Additional Instructions: Thank you for coming in today You did have a small bleed into the actual brain portion of your head with your fall 2 days ago. Fortunately repeat scan shows that it is not changing and it is certainly not expanding. At this point there is nothing that you need to do differently and I would expect that this is going to resolve completely. Please do continue all of your usual medications. Please avoid aspirin, ibuprofen, diclofenac or other nonsteroidals for the next 5 days. If you find that you are getting worse or develop any new symptoms, please feel free to return to the emergency department for further evaluation. Prescriptions: No Action Aspirin See Rx Instructions .ROUTE .COMPLEX Patient Comments: 81 mg PO QDAY Rx Instructions: 81 mg PO QDAY Gabapentin See Rx Instructions .ROUTE .COMPLEX Patient Comments: 300 mg PO PRN Rx Instructions: 300 mg PO PRN Hydrocodone 5 mg / Acetaminophen 325 mg See Rx Instructions .ROUTE .COMPLEX Patient Comments: 1 TAB QID PRN Rx Instructions: 1 TAB QID PRN Spacer: Inhaler Spacer Device BID Qty: 1 0RF [BACLOFEN] 10 mg PO PRN PRNQty: 0 CPAP: CPAP/PAP Full Face Mask Qty: 1 0RF lamotrigine [Lamictal] 200 mg tablet 200 mg PO BID Qty: 180 3RF morphine 15 mg tablet 15 mg PO BID Qty: 0 atorvastatin 20 mg tablet See Rx Instructions .ROUTE .COMPLEX Qty: 90 2RF Dose Instruction: TAKE ONE TABLET BY MOUTH BEDTIME Rx Instructions: TAKE ONE TABLET BY MOUTH BEDTIME duloxetine 60 mg capsule,delayed release(DR/EC) See Rx Instructions .ROUTE .COMPLEX Qty: 90 2RF Dose Instruction: TAKE ONE CAPSULE BY MOUTH ONCE DAILY Rx Instructions: TAKE ONE CAPSULE BY MOUTH ONCE DAILY (DME) Glucose Test Strips Qty: 100 12RF Dose Instruction: As directed Rx Instructions: Test blood sugars 3 times daily duloxetine 30 mg capsule,delayed release(DR/EC) See Rx Instructions .ROUTE .COMPLEX Qty: 90 2RF Dose Instruction: TAKE ONE CAPSULE BY MOUTH ONCE DAILY Rx Instructions: TAKE ONE CAPSULE BY MOUTH ONCE DAILY omeprazole 20 mg capsule,delayed release(DR/EC) See Rx Instructions .ROUTE .COMPLEX Qty: 180 0RF Dose Instruction: TAKE 20 MG BY MOUTH TWICE A DAY Rx Instructions: TAKE 20 MG BY MOUTH TWICE A DAY levothyroxine 137 mcg tablet See Rx Instructions .ROUTE .COMPLEX Qty: 90 2RF Dose Instruction: TAKE ONE TABLET DAILY Rx Instructions: TAKE ONE TABLET DAILY trazodone 100 mg tablet See Rx Instructions .ROUTE .COMPLEX Qty: 60 2RF Dose Instruction: TAKE ONE (1) TO TWO (2) TABLETS BY MOUTH BEDTIME; Rx Instructions: TAKE ONE (1) TO TWO (2) TABLETS BY MOUTH BEDTIME; Janumet 50-1,000 mg tablet See Rx Instructions .ROUTE .COMPLEX Qty: 180 1RF Dose Instruction: TAKE ONE TABLET BY MOUTH TWICE A DAY Rx Instructions: TAKE ONE TABLET BY MOUTH TWICE A DAY due for appt in July with pcp ([facility]) Disabled Parking Placard Qty: 1 0RF Rx Instructions: Qualifies for Disabled Parking Placard valacyclovir 500 mg tablet 1,000 mg PO BID terbinafine HCl 250 mg tablet 250 mg PO DAILY Qty: 90 1RF (DME) lancets Qty: 100 3RF Dose Instruction: As directed Rx Instructions: Test blood sugar three times a day. lidocaine [Blue-Emu Lidocaine Patch] topical diclofenac sodium [Arthritis Pain (diclofenac)] topical Jardiance 10 mg tablet 10 mg PO DAILY Qty: 90 3RF albuterol sulfate 90 mcg/actuation HFA aerosol inhaler 2 puff inhalation Q6H PRN (Reason: shortness of breath or wheezing) Qty: 6.7 2RF Flovent HFA 110 mcg/actuation HFA aerosol inhaler 2 puff INHALATION BID PRN (Reason: Asthma) Qty: 12 5RF hydrochlorothiazide 25 mg tablet See Rx Instructions .ROUTE .COMPLEX Qty: 90 3RF Dose Instruction: TAKE ONE HALF (1/2) TABLET BY MOUTH TWICE A DAY Rx Instructions: TAKE ONE HALF (1/2) TABLET BY MOUTH TWICE A DAY Pt needs appt w/provider for further refills pioglitazone 15 mg tablet See Rx Instructions .ROUTE .COMPLEX Qty: 90 3RF Dose Instruction: TAKE 15 MG BY MOUTH DAILY Rx Instructions: TAKE 15 MG BY MOUTH DAILY Referrals: Elver Liu, DO [Primary Care Provider] - Stand Alone Forms: Patient Portal/API
[2023-05-29 18:52] VITALS: BP 118/58; PULSE 58; O2SAT 97
[2023-05-29 20:40] VITALS: BP 126/60; PULSE 63; RESP 16; O2SAT 95
--- NOTE | 2023-05-29 21:00 | DI.CT.S_ITS ---
PROCEDURE: CT HEAD/BRAIN WO CON INDICATIONS: repeat to rule out interval change, per radiology TECHNIQUE: Noncontrast 4.5 mm thick angled axial sections acquired from the foramen magnum to the vertex, with coronal and sagittal reformats. For radiation dose reduction, the following was used: automated exposure control, adjustment of mA and/or kV according to patient size. COMPARISON: [facility], CT, CT HEAD/BRAIN WO CON, 05/29/2023, 15:08. FINDINGS: Image quality: There is metallic streak artifact from patient's earing limiting evaluation. CSF spaces: Basal cisterns are patent. No extra-axial fluid collections. The ventricles are symmetric in size and shape. Brain: There is a small focus of intraparenchymal high density with indistinct margins in the inferior right frontal lobe redemonstrated. This appears slightly decreased in density centrally. The findings are compatible with a small focal hemorrhagic cerebral contusion. There are small foci of high density within the basal ganglia redemonstrated bilaterally. These are similar in size compared to the prior study and likely represent calcifications. There are subcortical, periventricular and deep white matter hypodensities consistent with mild chronic small vessel ischemic changes. The araiza-white matter junction appears preserved. There is intracranial internal carotid artery atherosclerosis. Skull and face: Calvarium and visualized facial bones appear intact, without suspicious lesions. Sinuses: Visualized sinuses and mastoids are clear. IMPRESSION: 1. Small focus of parenchymal hemorrhage in the inferior right frontal lobe compatible with a hemorrhagic cerebral contusion appears similar in size compared to the prior study. 2. Small foci of high density in the bilateral basal ganglia appear similar to the prior study and likely represent calcifications given the location and bilateral distribution. Consider short-term follow-up to demonstrate stability. Dictated by: Olivier Suggs M.D. on 05/29/2023 at 21:23 Approved by: Olivier Suggs M.D. on 05/29/2023 at 21:30
[2023-05-29 22:03] VITALS: BP 135/60; PULSE 61; RESP 16; O2SAT 96
--- NOTE | 2023-05-29 23:04 | PC.NURSE ---
pharmacy technician assistant contacted in regards to delay in CT read. Tech states will look into it.
[2023-05-29 23:39] VITALS: BP 147/88; PULSE 61; RESP 16; O2SAT 95
== END 2023-05-29 23:39 | disposition home or self-care (01) ==
PROVIDERS: Emergency Provider Emergency Medicine; PCP Family Medicine
DX: S06.2X0A Diffuse traumatic brain injury without loss of consciousness, initial encounter (principal); W18.30XA Fall on same level, unspecified, initial encounter
CPT/HCPCS: 70450; 72125; 99283; 99284

== ENCOUNTER → 2023-08-22 12:58 | Outpatient (CLI) | payer MEDICARE, MEDICAID, SELFPAY ==
[2023-08-22 14:49] LABS: Basophils Absolute Auto 0 /uL (0-100); Basophils Percent Auto 0.7 % (0-2); Eosinophils Absolute Auto 200 /uL (0-450); Eosinophils Percent Auto 3.6 % (2-4); Hematocrit 34.5 % (36-46); Hemoglobin 10.7 g/dL (12.0-16.0); Lymphocytes Absolute Auto 1800 /uL (1100-4500); Lymphocytes Percent Auto 31.3 % (25-40); Mean Corpuscular HGB Conc 31.1 % (30-36); Mean Corpuscular Volume 67.5 fL (80-100); Monocytes Absolute Auto 600 /uL (0-900); Monocytes Percent Auto 10.2 % (3-14); Neutrophils Absolute Auto 3100 /uL (1500-7000); Neutrophils Percent Auto 54.2 % (50-75); Platelet Count 395 X10^3/uL (150-400); Red Blood Cell Count 5.11 X10^6/uL (4.0-5.2); Red Cell Distribution Width 17.5 % (11.6-14.8); White Blood Cell Count 5.7 X10^3/uL (4.5-11.0)
[2023-08-22 14:50] LABS: Add Manual Diff / Slide Review SLIDE REVIEW; Hemoglobin A1C% w Est Avg Glu 6.6 % (4.0-6.0)
[2023-08-22 15:06] LABS: HEMOLYSIS < 15 (0-50); Iron 29 ug/dL (37-170)
[2023-08-22 15:11] LABS: Anisocytosis 1+; Microcytosis 1+
[2023-08-22 15:15] LABS: Alanine Aminotransferase 13 IU/L (<35); Albumin 4.3 g/dL (3.5-5.0); Albumin Globulin Ratio 1.7 (1.0-2.8); Alkaline Phosphatase 93 U/L (38-126); Aspartate Aminotransferase 16 IU/L (14-36); BUN Creatinine Ratio 42.3 (6-22); Bilirubin Total 0.4 mg/dL (0.2-1.3); Blood Urea Nitrogen 22 mg/dL (7-17); Calcium 9.7 mg/dL (8.4-10.2); Carbon Dioxide 34 mmol/L (22-32); Chloride 94 mmol/L (98-107); Estimated Glomerular Filt Rate > 60 mL/min (>60); Globulin 2.5 g/dL (1.7-4.1); Glucose 104 mg/dL (80-110); HEMOLYSIS < 15 (0-50); Potassium 4.2 mmol/L (3.4-5.1); Sodium 136 mmol/L (137-145); Total Protein 6.8 g/dL (6.3-8.2)
[2023-08-22 15:17] LABS: Percent Iron Saturation 7 % (15-50); Total Iron Binding Capacity 441 ug/dL (265-497); Transferrin 361 mg/dL (206-381)
[2023-08-22 15:25] LABS: Free T4, Direct Thyroxine 1.58 ng/dL (0.78-2.19)
[2023-08-22 15:39] LABS: Thyroid Stimulating Hormone 1.34 uIU/mL (0.47-4.68)
== END ==
PROVIDERS: PCP Family Medicine; Referring Provider Family Medicine; Visit Provider Family Medicine
DX: E78.2 Mixed hyperlipidemia (principal); E11.9 Type 2 diabetes mellitus without complications; I10 Essential (primary) hypertension; E03.9 Hypothyroidism, unspecified; D50.9 Iron deficiency anemia, unspecified
CPT/HCPCS: 36415; 80053; 83036; 83540; 83550; 84439; 84443; 85025

== ENCOUNTER → 2023-09-12 | Outpatient (CLI) | payer MEDICARE, MEDICAID, SELFPAY ==
--- NOTE | 2023-09-12 11:12 | DI.RAD.S_ITS ---
PROCEDURE: XR THORACIC SPINE 2V INDICATIONS: eval for scoliosis TECHNIQUE: 3 views of the thoracic spine were acquired. COMPARISON: None. FINDINGS: Bones: No fractures or dislocations. Convex right thoracolumbar spine scoliosis. Lower thorax and lumbar spine enthesophytes concerning for ankylosing spondylitis. No suspicious bony lesions. 12 pairs of ribs are noted, and appear intact where visualized. Soft tissues: No paravertebral stripe thickening. IMPRESSION: Convex right thoracolumbar spine scoliosis. Dictated by: Shabnam Hernandez MD, PhD on 09/12/2023 at 13:55 Approved by: Shabnam Hernandez MD, PhD on 09/12/2023 at 13:56
--- NOTE | 2023-09-12 11:12 | DI.RAD.S_ITS ---
PROCEDURE: XR LUMBAR SPINE 2-3V INDICATIONS: eval for scoliosis TECHNIQUE: 3 views of the lumbar spine were acquired. COMPARISON: None. FINDINGS: Bones: 5 [id number] vertebrae are present. There is normal bony alignment. Lumbosacral spine DC fights. There is approximately 27? of convex right thoracolumbar spine scoliosis. No vertebral body compression fractures. No suspicious bony lesions. Soft tissues: Overlying bowel gas pattern is normal. No suspicious soft tissue calcifications. IMPRESSION: Convex right thoracolumbar spine scoliosis. Extensive enthesophytes concerning for ankylosing spondylitis. Dictated by: Shabnam Hernandez MD, PhD on 09/12/2023 at 13:51 Approved by: Shabnam Hernandez MD, PhD on 09/12/2023 at 13:55
--- NOTE | 2023-09-12 11:12 | DI.RAD.S_ITS ---
Bone Density Report Name: HEATHER CORTÉS Age: 73 Sex: Female Ethnicity: White Date of : 1950 Indication: postmenopausal; screening for osteoporosis; Referring Provider: MICHELLE MCFARLAND Study: Bone densitometry was performed. Exam Date: September 12, 2023 Accession number: [id number] Bone Density: Region BMD T-score Z-score Classification AP Spine(L1-L4) 1.178 1.2 3.4 Normal Femoral Neck (Left) 0.829 -0.2 1.7 Normal Total Hip (Left) 0.892 -0.4 1.2 Normal Femoral Neck (Right) 0.762 -0.8 1.1 Normal Total Hip (Right) 0.927 -0.1 1.5 Normal Total Hip Mean 0.909 -0.3 1.4 Normal World Health Organization criteria for BMD impression classify patients as: Normal (T-score at or above -1.0), Osteopenia (T-score between -1.0 and -2.5), or Osteoporosis (T-score at or below -2.5). 10-year Fracture Risk: FRAX not reported because: All T-scores for Spine Total, Hip Total, Femoral Neck at or above -1.0 Previous Exams: -- Region Exam Age BMD T-score BMD Change BMD Change Date g/cm2 vs Baseline vs Previous -- AP Spine (L1-L4) 09/12/2023 73 1.178 1.2 0.020 (1.7%)# 0.020 (1.7%)# 01/29/2018 68 1.158 1.0 Total Hip(Left) 09/12/2023 73 0.892 -0.4 -0.004 (-0.5%)# -0.004 (-0.5%)# 01/29/2018 68 0.896 -0.4 Total Hip(Right) 09/12/2023 73 0.927 -0.1 0.074 (8.6%)# 0.074 (8.6%)# 01/29/2018 68 0.853 -0.7 -- *Denotes significance at 95% confidence level, LSC for AP Spine = 0.022 g/cm2, LSC for Total Hip = 0.027 g/cm2 # Denotes dissimilar scan types or analysis methods Impression: The patient has normal bone mass. No significant bone loss was observed. Discussion: BONE DENSITY IS ABOVE THE MINIMUM DESIRABLE LEVEL AT ALL SKELETAL SITES TESTED. This patient's bone mineral density is above the minimum desirable level (T-score -1.0 or better) at all sites measured. The patient should follow a healthful lifestyle (good nutrition with adequate calcium and vitamin D, and appropriate weight-bearing exercise). Follow-Up: Consider repeating this study in 5 years or sooner if there is some new clinical indication. Reported by: KING MONIQUE M.D. on 09/12/2023 11:48:00 AM.
--- NOTE | 2023-09-12 11:12 | DI.RAD.S_ITS ---
PROCEDURE: XR CERVICAL SPINE 2V OR 3V INDICATIONS: eval for scoliosis TECHNIQUE: 3 view(s) of the cervical spine were acquired. COMPARISON: None. FINDINGS: Bones: No fractures or dislocations to the T1 level. The lateral masses of C1 appear intact on the odontoid view. No suspicious bony lesions. Spine degenerative disc disease and facet arthropathy. Soft tissues: No prevertebral soft tissue swelling. IMPRESSION: No cervical spine scoliosis. No fracture. No acute osseous lesion. If symptoms and/or clinical suspicion for pathology persists, evaluation with MRI should be considered for further assessment. Dictated by: Shabnam Hernandez MD, PhD on 09/12/2023 at 13:51 Approved by: Shabnam Hernandez MD, PhD on 09/12/2023 at 13:51
== END ==
LOC: RAD 11:12
PROVIDERS: PCP Family Medicine; Referring Provider Family Medicine; Visit Provider Family Medicine
DX: M85.89 Other specified disorders of bone density and structure, multiple sites (principal); Z13.820 Encounter for screening for osteoporosis; Z78.0 Asymptomatic menopausal state; Z13.828 Encounter for screening for other musculoskeletal disorder; M85.9 Disorder of bone density and structure, unspecified
CPT/HCPCS: 72040; 72070; 72100; 77080

== ENCOUNTER → 2024-01-23 08:49 | Outpatient (CLI) | payer MEDICARE, MEDICAID, SELFPAY ==
[2024-01-23 10:14] LABS: Hemoglobin A1C% w Est Avg Glu 6.2 % (4.0-6.0)
[2024-01-23 10:27] LABS: Add Manual Diff / Slide Review NO; Basophils Absolute Auto 100 /uL (0-100); Basophils Percent Auto 0.7 % (0-2); Eosinophils Absolute Auto 200 /uL (0-450); Eosinophils Percent Auto 2.7 % (2-4); Hematocrit 35.9 % (36-46); Hemoglobin 11.2 g/dL (12.0-16.0); Lymphocytes Absolute Auto 2400 /uL (1100-4500); Lymphocytes Percent Auto 32.9 % (25-40); Mean Corpuscular HGB Conc 31.1 % (30-36); Mean Corpuscular Hemoglobin 20.9 PG (26-34); Mean Corpuscular Volume 67.4 fL (80-100); Monocytes Absolute Auto 700 /uL (0-900); Monocytes Percent Auto 10.1 % (3-14); Neutrophils Absolute Auto 3800 /uL (1500-7000); Neutrophils Percent Auto 53.6 % (50-75); Platelet Count 441 X10^3/uL (150-400); Red Blood Cell Count 5.33 X10^6/uL (4.0-5.2); White Blood Cell Count 7.1 X10^3/uL (4.5-11.0)
[2024-01-23 10:37] LABS: HEMOLYSIS < 15 (0-50); Iron 35 ug/dL (37-170)
[2024-01-23 10:48] LABS: Alanine Aminotransferase 15 IU/L (<35); Albumin 4.5 g/dL (3.5-5.0); Albumin Globulin Ratio 1.6 (1.0-2.8); Alkaline Phosphatase 84 U/L (38-126); Aspartate Aminotransferase 19 IU/L (14-36); BUN Creatinine Ratio 37.5 (6-22); Bilirubin Total 0.6 mg/dL (0.2-1.3); Blood Urea Nitrogen 24 mg/dL (7-17); Calcium 10.1 mg/dL (8.4-10.2); Carbon Dioxide 32 mmol/L (22-32); Chloride 98 mmol/L (98-107); Estimated Glomerular Filt Rate > 60 mL/min (>60); Globulin 2.8 g/dL (1.7-4.1); Glucose 105 mg/dL (80-110); HEMOLYSIS < 15 (0-50); Potassium 4.2 mmol/L (3.4-5.1); Sodium 139 mmol/L (137-145); Total Protein 7.3 g/dL (6.3-8.2)
[2024-01-23 10:49] LABS: Free T4, Direct Thyroxine 1.57 ng/dL (0.78-2.19); Percent Iron Saturation 7 % (15-50); Total Iron Binding Capacity 494 ug/dL (265-497); Transferrin 423 mg/dL (206-381)
[2024-01-23 10:59] LABS: Anisocytosis 1+; Hypochromasia 1+; Microcytosis 2+
[2024-01-23 11:04] LABS: Thyroid Stimulating Hormone 1.94 uIU/mL (0.47-4.68)
[2024-01-23 11:24] LABS: Vitamin B12 > 1000 pg/mL (239-931)
== END ==
PROVIDERS: PCP Family Medicine; Referring Provider Family Medicine; Visit Provider Family Medicine
DX: E03.9 Hypothyroidism, unspecified (principal); E11.9 Type 2 diabetes mellitus without complications; E78.2 Mixed hyperlipidemia; I10 Essential (primary) hypertension
CPT/HCPCS: 36415; 80053; 82607; 83036; 83540; 83550; 84439; 84443; 85025

== ENCOUNTER → 2024-03-05 15:10 | Outpatient (CLI) | payer MEDICARE, MEDICAID, SELFPAY ==
[2024-03-05 16:59] LABS: Add Manual Diff / Slide Review NO; Basophils Absolute Auto 0 /uL (0-100); Basophils Percent Auto 0.4 % (0-2); Eosinophils Absolute Auto 200 /uL (0-450); Eosinophils Percent Auto 1.9 % (2-4); Hematocrit 38.8 % (36-46); Hemoglobin 12.2 g/dL (12.0-16.0); Lymphocytes Absolute Auto 1300 /uL (1100-4500); Lymphocytes Percent Auto 16.4 % (25-40); Mean Corpuscular HGB Conc 31.5 % (30-36); Mean Corpuscular Hemoglobin 22.7 PG (26-34); Monocytes Absolute Auto 500 /uL (0-900); Monocytes Percent Auto 6.4 % (3-14); Neutrophils Absolute Auto 6000 /uL (1500-7000); Neutrophils Percent Auto 74.9 % (50-75); Platelet Count 382 X10^3/uL (150-400); Red Blood Cell Count 5.38 X10^6/uL (4.0-5.2); Red Cell Distribution Width 20.4 % (11.6-14.8)
[2024-03-05 17:23] LABS: HEMOLYSIS < 15 (0-50); Iron 113 ug/dL (37-170)
[2024-03-05 17:31] LABS: Anisocytosis 1+; Microcytosis 2+
[2024-03-05 17:34] LABS: Percent Iron Saturation 30 % (15-50); Total Iron Binding Capacity 373 ug/dL (265-497); Transferrin 295 mg/dL (206-381)
== END ==
PROVIDERS: PCP Family Medicine; Referring Provider Family Medicine; Visit Provider Family Medicine
DX: D50.8 Other iron deficiency anemias (principal)
CPT/HCPCS: 36415; 83540; 83550; 85025

== ENCOUNTER → 2024-04-04 15:28 | Outpatient (CLI) | payer MEDICARE, MEDICAID, SELFPAY ==
[2024-04-04 16:10] LABS: Add Manual Diff / Slide Review NO; Basophils Absolute Auto 0 /uL (0-100); Basophils Percent Auto 0.5 % (0-2); Eosinophils Absolute Auto 200 /uL (0-450); Eosinophils Percent Auto 2.8 % (2-4); Hematocrit 39.6 % (36-46); Lymphocytes Absolute Auto 2000 /uL (1100-4500); Lymphocytes Percent Auto 28.6 % (25-40); Mean Corpuscular HGB Conc 32.7 % (30-36); Mean Corpuscular Hemoglobin 25.1 PG (26-34); Mean Corpuscular Volume 76.8 fL (80-100); Monocytes Absolute Auto 700 /uL (0-900); Monocytes Percent Auto 9.1 % (3-14); Neutrophils Absolute Auto 4200 /uL (1500-7000); Platelet Count 361 X10^3/uL (150-400); Red Blood Cell Count 5.16 X10^6/uL (4.0-5.2); Red Cell Distribution Width 26.6 % (11.6-14.8); White Blood Cell Count 7.1 X10^3/uL (4.5-11.0)
[2024-04-04 16:31] LABS: Anisocytosis 3+
[2024-04-04 17:01] LABS: HEMOLYSIS < 15 (0-50); Iron 87 ug/dL (37-170)
[2024-04-04 17:15] LABS: Percent Iron Saturation 25 % (15-50); Total Iron Binding Capacity 349 ug/dL (265-497); Transferrin 263 mg/dL (206-381)
== END ==
PROVIDERS: PCP Family Medicine; Referring Provider Family Medicine; Visit Provider Family Medicine
DX: D50.9 Iron deficiency anemia, unspecified (principal)
CPT/HCPCS: 36415; 83540; 83550; 85025

== ENCOUNTER 2024-06-21 07:37 | Day surgery (SDC) | payer MEDICARE, MEDICAID, SELFPAY ==
--- NOTE | 2024-06-21 | PATH_ITS ---
[facility] Accession Number: [id number] No. of containers..01 Tissue . 01 Material submitted: . colon - ASCENDING COLON POLYP . 01 Diagnosis: ASCENDING COLON POLYP: Tubular adenoma. [facility] 06/26/20246 Local . 01 Electronically signed: . Olivier Lynn MD, Pathologist NPI- [id number] . 01 Gross description: . Received in formalin with two patient identifiers and ascending colon polyp, is a godoy to brown soft tissue fragment, 1.0 x 0.6 x 0.9 cm. Inked blue, bisected, and submitted in A1. ([id number]) /MRV 06/26/20241735 Local . 01 Pathologist provided ICD-10: D12.2 . 01 CPT . 972262 Specimen Comment: A courtesy copy of this report has been sent to [phone] Performed at: [address] [address], [place], [place] [id number] MD Olivier Lynn MD Phone: [phone]
[2024-06-21 08:14] VITALS: BP 139/74; PULSE 81; RESP 16; TEMP 36.2; O2SAT 98
[2024-06-21] MEDS: LACTATED RINGERS 1,000 ML 42 ML IV (08:29)
--- NOTE | 2024-06-21 08:57 | P.HP_ITS ---
History of Present Illness History of Present Illness Date Patient Seen: 06/21/24 Time Patient Seen: 09:13 Chief complaint: Screening Colonoscopy Narrative: Last colonoscopy 10 years, no problems, no family history or symptoms for colon cancer [facility] Medical History Toenail fungus Heart murmur Chronic GERD Bipolar disorder Depression Osteopenia (~01/2018) Cataracts, bilateral (~07/2017) Chronic back pain Diabetes Hyperlipemia Hypertension Hypothyroidism Scoliosis Sleep apnea Surgical History Hx of spinal fusion (1963) Hx of cholecystectomy (1988) Hx of hysterectomy (1994) History of carpal tunnel release (1981) Family History Father Marfan syndrome Mother Hypertension Dementia Brother Depression Chronic pain Sister Diabetes mellitus Sister Marfan syndrome Grandfather Alcoholism Grandmother No problems noted. Grandfather Marfan syndrome Grandmother Hip problem Social History Smoking Status: Never smoker second hand exposure: No alcohol intake: current substance use type: does not use Meds Home Medications and Allergies Home Medications Medication Instructions Recorded Confirmed Type Spacer: Inhaler Spacer Device ea BID ##1 10/12/16 01/23/24 Rx CPAP: CPAP/PAP Full Face Mask ea ##1 12/25/16 01/23/24 Rx Disabled Parking Placard #1 ea 11/27/19 01/23/24 Rx lancets #100 ea 06/22/21 01/23/24 Rx terbinafine HCl 250 mg tablet 250 mg PO DAILY #90 tabs 06/22/21 06/21/24 Rx albuterol sulfate 90 mcg/actuation 2 puff inhalation Q6H PRN 07/21/22 06/21/24 Rx aerosol inhaler shortness of breath or wheezing #6.7 grams fluticasone propionate 110 2 puff inhalation BID PRN Asthma 07/21/22 06/21/24 Rx mcg/actuation HFA aerosol inhaler #12 grams (Flovent HFA) lidocaine [Blue-Emu Lidocaine topical 07/21/22 01/23/24 History Patch] valacyclovir 500 mg tablet 1,000 mg PO BID Herpes zoster in 07/21/22 06/21/24 History right eye Glucose Test Strips #100 ea 01/31/23 01/23/24 Rx empagliflozin 10 mg tablet 10 mg PO DAILY #90 tabs 09/11/23 06/21/24 Rx (Jardiance) pioglitazone 15 mg tablet See Rx Instructions .Route 09/11/23 06/21/24 Rx .COMPLEX #90 tabs omeprazole 20 mg capsule,delayed See Rx Instructions .Route 09/28/23 06/21/24 Rx release .COMPLEX #180 caps atorvastatin 20 mg tablet See Rx Instructions .Route 10/26/23 06/21/24 Rx .COMPLEX #90 tabs duloxetine 60 mg capsule,delayed See Rx Instructions .Route 10/31/23 06/21/24 Rx release .COMPLEX #90 caps duloxetine 30 mg capsule,delayed See Rx Instructions .Route 11/27/23 06/21/24 Rx release .COMPLEX #90 caps levothyroxine 137 mcg tablet See Rx Instructions .Route 11/27/23 06/21/24 Rx .COMPLEX #90 tabs aspirin 81 mg tablet,delayed 81 mg PO DAILY 01/23/24 06/21/24 History release (Adult Low Dose Aspirin) baclofen 10 mg tablet 10 mg PO BID 01/23/24 06/21/24 History gabapentin 300 mg capsule 600 mg PO BID 01/23/24 06/21/24 History hydrocodone 5 mg-acetaminophen 325 1 tab PO Q6H PRN Pain (Scale Score 01/23/24 06/21/24 History mg tablet 7-10) morphine 15 mg tablet,extended 15 mg PO BID 01/23/24 06/21/24 History release hydrochlorothiazide 25 mg tablet See Rx Instructions .Route 02/06/24 06/21/24 Rx .COMPLEX #90 ea trazodone 100 mg tablet 100 - 200 mg (1 - 2 x 100 mg) PO 04/10/24 06/21/24 Rx BEDTIME #60 tabs sodium,potassium,mag sulfates 17.5 See Rx Instructions PO .COMPLEX 06/18/24 Rx gram-3.13 gram-1.6 gram oral soln #354 mL (Suprep Bowel Prep Kit) lamotrigine 200 mg tablet 200 mg PO BID #180 tabs 06/19/24 06/21/24 Rx (Lamictal) sitagliptin phosphate 50 See Rx Instructions .Route 06/21/24 06/21/24 History mg-metformin 1,000 mg tablet .COMPLEX diabetes (Janumet) Allergies Allergy/AdvReac Type Severity Reaction Status Date / Time No Known Drug Allergies Allergy Verified 06/21/24 08:10 Review of Systems Review of Systems ROS: Yes All systems reviewed with the patient and are negative except as otherwise documented Exam Vital Signs (past 8 hours): - 06/21/24 08:14 Temperature 97.2 F L Pulse Rate 81 Respiratory Rate 16 Blood Pressure 139/74 Pulse Oximetry 98 Oxygen Delivery Method Room Air Oxygen Delivery Method Room Air Const General: cooperative and comfortable Nutritional Appearance: average body habitus HENMT Head: normocephalic and atraumatic Eyes General: appearance normal, both eyes and all related structures Sclera: sclerae normal Neck Neck: trachea midline Chest Chest: normal inspection of the chest Resp Effort & Inspection: normal respiratory effort and able to speak in complete sentences Cardio Rate: regular rate Rhythm: regular rhythm GI Palpation: soft Skin General: atrophy Neuro General: patient alert, patient awake and patient oriented x3 Cognition: normal cognition Psych Mental Status: mental status grossly normal Judgment: judgment good Assessment & Plan Assessment & Plan narrative: Colon cancer screening using colonoscopy with anesthesia Time-Based Coding :: [TOTAL MINUTES] spent with patient and on the chart (including review of chart, obtaining history, exam, reviewing outside data, placing orders, documenting exam and treatment plan, and counseling patient) on [DATE].
--- NOTE | 2024-06-21 09:48 | PM.OP.COLON ---
Operative Date/Time/Diagnoses Date of procedure: 06/21/24 Time of procedure: 09:48 Pre-op diagnosis: Colon cancer screening Post-op diagnosis: same Procedure & Clinicians Study performed: Colonoscopy with cold polypectomy snare Indications: Colon cancer screening Surgeon: Dorys Sanchez Procedure Notes Procedure in detail: Preop diagnosis: Colon cancer screening Postop diagnosis: Same Operative procedure: Cold snare polypectomy, colonoscopy with anesthesia Surgeon: Allie Sanchez MD Findings: Sessile polyp 3 mm in size on the ascending colon taken with a cold snare Procedure: Patient placed in a lateral position. Rectal exam performed showing normal tone no masses. Colonoscope inserted into the rectum and advanced to ileocecal valve with minimal difficulty. Insufflation extraction scope and the above findings. Retroflex was included in the rectum. Impression: Ascending colon polyp taken with cold snare polypectomy measuring approximately 3 mm in size. No significant diverticulosis. Plan: Repeat colonoscopy in 5 years unless otherwise indicated by change in clinical condition Findings: polyp(s) Specimen(s): other (Ascending colon polyp ) Complications: none Post-procedure Recommendations: Colonoscopy in 5 years
[2024-06-21 09:50] VITALS: BP 111/60; PULSE 63; RESP 14; TEMP 36.4; O2SAT 97
[2024-06-21 09:55] VITALS: BP 108/75; PULSE 60; RESP 12; O2SAT 98
[2024-06-21 10:00] VITALS: BP 118/67; PULSE 70; RESP 14; O2SAT 97
[2024-06-21 10:07] VITALS: BP 115/78; PULSE 70; RESP 22; O2SAT 95
== END 2024-06-21 11:07 | disposition home or self-care (01) ==
PROVIDERS: PCP Family Medicine; Referring Provider Surgery; Visit Provider Surgery
PROC: 0DJD8ZZ Inspection of Lower Intestinal Tract, Via Natural or Artificial Opening Endoscopic (ICD-10-PCS; CPT 45378; principal; 2024-06-21 08:45)
DX: Z12.11 Encounter for screening for malignant neoplasm of colon (principal); D12.2 Benign neoplasm of ascending colon
CPT/HCPCS: 45385; J2704

== ENCOUNTER → 2024-07-11 08:55 | Outpatient (CLI) | payer MEDICARE, MEDICAID, SELFPAY ==
[2024-07-11 15:33] LABS: Add Manual Diff / Slide Review NO; Basophils Absolute Auto 0 /uL (0-100); Basophils Percent Auto 0.5 % (0-2); Eosinophils Absolute Auto 200 /uL (0-450); Eosinophils Percent Auto 2.7 % (2-4); Hematocrit 41.1 % (36-46); Hemoglobin 13.7 g/dL (12.0-16.0); Lymphocytes Absolute Auto 1400 /uL (1100-4500); Mean Corpuscular HGB Conc 33.3 % (30-36); Mean Corpuscular Hemoglobin 28.2 PG (26-34); Mean Corpuscular Volume 84.8 fL (80-100); Monocytes Absolute Auto 500 /uL (0-900); Monocytes Percent Auto 9.5 % (3-14); Neutrophils Absolute Auto 3600 /uL (1500-7000); Neutrophils Percent Auto 62.3 % (50-75); Platelet Count 358 X10^3/uL (150-400); Red Blood Cell Count 4.85 X10^6/uL (4.0-5.2); Red Cell Distribution Width 13.8 % (11.6-14.8); White Blood Cell Count 5.8 X10^3/uL (4.5-11.0)
[2024-07-11 22:12] LABS: HEMOLYSIS < 15 (0-50)
[2024-07-11 22:17] LABS: Iron 77 ug/dL (37-170)
[2024-07-11 22:28] LABS: Percent Iron Saturation 20 % (15-50); Total Iron Binding Capacity 392 ug/dL (265-497); Transferrin 333 mg/dL (206-381)
[2024-07-12 03:45] LABS: Vitamin B12 390 pg/mL (239-931)
== END ==
PROVIDERS: PCP Family Medicine; Referring Provider Family Medicine; Visit Provider Family Medicine
DX: E78.2 Mixed hyperlipidemia (principal); E11.9 Type 2 diabetes mellitus without complications; D64.9 Anemia, unspecified; I10 Essential (primary) hypertension
CPT/HCPCS: 36415; 82607; 83036; 83540; 83550; 85025

== ENCOUNTER 2024-08-15 15:02 | Emergency (ER) | payer MEDICARE, MEDICAID, SELFPAY ==
[2024-08-15 15:08] VITALS: BP 149/63; PULSE 61; RESP 18; TEMP 36.1; O2SAT 97; BMI 31.7
--- NOTE | 2024-08-15 16:25 | ED_ITS ---
HPI - Wound/Laceration <Bennett Quiroz PA-C - Last Filed: 08/15/24 17:08> General Chief Complaint: Wound/Laceration Stated Complaint: infected toe nail, diabetic Time Seen by Provider: 08/15/24 16:10 Source: patient Mode of arrival: Ambulatory History of Present Illness HPI narrative: This is a 74-year-old female presents emergency department due to an ingrown toenail affecting her left great toe onset about 5 days ago. She states that she was noticed it is becoming red around her toenail with concerns that may have become infected as she was diabetic. She denies any fevers, nausea, vomiting, or any other systemic symptoms. Denies any redness spreading up her foot. Related Data Home Medications Medication Instructions Recorded Confirmed lidocaine [Blue-Emu Lidocaine topical 07/21/22 07/11/24 Patch] valacyclovir 500 mg tablet 1,000 mg PO BID Herpes zoster in 07/21/22 07/11/24 right eye aspirin 81 mg tablet,delayed 81 mg PO DAILY 01/23/24 07/11/24 release (Adult Low Dose Aspirin) baclofen 10 mg tablet 10 mg PO BID 01/23/24 07/11/24 gabapentin 300 mg capsule 600 mg PO BID 01/23/24 07/11/24 hydrocodone 5 mg-acetaminophen 325 1 tab PO Q6H PRN Pain (Scale Score 01/23/24 07/11/24 mg tablet 7-10) morphine 15 mg tablet,extended 15 mg PO BID 01/23/24 07/11/24 release Previous Rx's Medication Instructions Recorded Spacer: Inhaler Spacer Device ea BID ##1 10/12/16 CPAP: CPAP/PAP Full Face Mask ea ##1 12/25/16 Disabled Parking Placard #1 ea 11/27/19 lancets #100 ea 06/22/21 albuterol sulfate 90 mcg/actuation 2 puff inhalation Q6H PRN 07/21/22 aerosol inhaler shortness of breath or wheezing #6.7 grams fluticasone propionate 110 2 puff inhalation BID PRN Asthma 07/21/22 mcg/actuation HFA aerosol inhaler #12 grams (Flovent HFA) Glucose Test Strips #100 ea 01/31/23 empagliflozin 10 mg tablet 10 mg PO DAILY #90 tabs 09/11/23 (Jardiance) pioglitazone 15 mg tablet See Rx Instructions .Route 09/11/23 .COMPLEX #90 tabs duloxetine 30 mg capsule,delayed See Rx Instructions .Route 11/27/23 release .COMPLEX #90 caps levothyroxine 137 mcg tablet See Rx Instructions .Route 11/27/23 .COMPLEX #90 tabs sodium,potassium,mag sulfates 17.5 See Rx Instructions PO .COMPLEX 06/18/24 gram-3.13 gram-1.6 gram oral soln #354 mL (Suprep Bowel Prep Kit) lamotrigine 200 mg tablet 200 mg PO BID #180 tabs 06/19/24 (Lamictal) omeprazole 20 mg capsule,delayed See Rx Instructions .Route 07/08/24 release .COMPLEX #180 caps trazodone 100 mg tablet 100 - 200 mg (1 - 2 x 100 mg) PO 07/09/24 BEDTIME #60 tabs terbinafine HCl 250 mg tablet 250 mg PO DAILY #90 tabs 07/11/24 atorvastatin 20 mg tablet See Rx Instructions .Route 08/05/24 .COMPLEX #90 tabs duloxetine 60 mg capsule,delayed See Rx Instructions .Route 08/05/24 release .COMPLEX #90 caps hydrochlorothiazide 25 mg tablet See Rx Instructions .Route 08/05/24 .COMPLEX #90 ea sitagliptin phosphate 50 1 tab PO BID diabetes #180 tabs 08/07/24 mg-metformin 1,000 mg tablet (Janumet) cephalexin 500 mg capsule 500 mg PO QID #28 caps 08/15/24 Allergies Allergy/AdvReac Type Severity Reaction Status Date / Time No Known Drug Allergies Allergy Verified 07/11/24 08:12 Review of Systems <Bennett Quiroz PA-C - Last Filed: 08/15/24 17:08> Review of Systems Narrative: GENERAL: Denies chills, fatigue, malaise, fever, sweats. HEENT: Denies sinus pain, ear pain, sore throat, difficulty swallowing, dizziness. RESPIRATORY: Denies dyspnea, cough, wheezing, hemoptysis, sputum. CARDIOVASCULAR: Denies chest pain, palpitations, orthopnea, edema, GASTROINTESTINAL: Denies nausea, vomiting, abdominal pain, diarrhea, constipation, melena. : Denies dysuria, frequency, incontinence, hematuria, urinary retention. MUSCULOSKELETAL: Reports left great toe pain denies weakness, joint pain, or bony pain SKIN: Denies rash, skin lesions, or other NEUROLOGIC: Denies weakness, headache, numbness, change in speech, confusion, seizures, incoordination. PSYCHIATRIC: No concerning psychosocial issues. 12 point review of systems is negative except for those stated above Patient History <Bennett Quiroz PA-C - Last Filed: 08/15/24 17:08> Medical History Toenail fungus Heart murmur Chronic GERD Bipolar disorder Depression Osteopenia (~01/2018) Cataracts, bilateral (~07/2017) Chronic back pain Diabetes Hyperlipemia Hypertension Hypothyroidism Scoliosis Sleep apnea Surgical History Hx of spinal fusion (1963) Hx of cholecystectomy (1988) Hx of hysterectomy (1994) History of carpal tunnel release (1981) Family History Father Marfan syndrome Mother Hypertension Dementia Brother Depression Chronic pain Sister Diabetes mellitus Sister Marfan syndrome Grandfather Alcoholism Grandmother No problems noted. Grandfather Marfan syndrome Grandmother Hip problem Social History Smoking Status: Never smoker second hand exposure: No alcohol intake: current substance use type: does not use Smoking Status: Never smoker alcohol intake frequency: 0-2 drinks per day Substance Use Type: does not use Exam <Bennett Quiroz PA-C - Last Filed: 08/15/24 17:08> Narrative Exam Narrative: GENERAL: Well-developed patient, in mild distress. HEAD: Atraumatic. Normocephalic. EYES: Pupils equal round and reactive. Extraocular motions intact. No scleral icterus. No injection or drainage. ENT: Nose without bleeding, purulent drainage. Throat without erythema, tonsillar hypertrophy or exudate. Airway patent. NECK: Trachea midline. Non tender EXTREMITIES: Mild edema and erythema affecting the medial portion of the skin around the left great toe. No spreading erythema of the foot. No purulent discharge. NEURO: AOx3. SKIN: No rash or erythema of visible areas Initial Vital Signs Initial Vital Signs: Vital Signs Temperature 96.9 F L 08/15/24 15:08 Pulse Rate 61 08/15/24 15:08 Respiratory Rate 18 08/15/24 15:08 Blood Pressure 149/63 H 08/15/24 15:08 Pulse Oximetry 97 08/15/24 15:08 Oxygen Delivery Method Room Air 08/15/24 15:08 <Amanda Christianson MD - Last Filed: 08/15/24 18:15> Initial Vital Signs Initial Vital Signs: Vital Signs Temperature 96.9 F L 08/15/24 15:08 Pulse Rate 61 08/15/24 15:08 Respiratory Rate 18 08/15/24 15:08 Blood Pressure 149/63 H 08/15/24 15:08 Pulse Oximetry 97 08/15/24 15:08 Oxygen Delivery Method Room Air 08/15/24 15:08 Course <Bennett Quiroz PA-C - Last Filed: 08/15/24 17:08> Vital Signs Vital signs: Vital Signs - 8 hr 08/15/24 15:08 08/15/24 17:13 Temperature 96.9 F L Pulse Rate 61 52 L Respiratory Rate 18 18 Blood Pressure 149/63 H 142/63 H Pulse Oximetry 97 95 Oxygen Delivery Method Room Air Room Air <Amanda Christianson MD - Last Filed: 08/15/24 18:15> Vital Signs Vital signs: Vital Signs - 8 hr 08/15/24 15:08 08/15/24 17:13 Temperature 96.9 F L Pulse Rate 61 52 L Respiratory Rate 18 18 Blood Pressure 149/63 H 142/63 H Pulse Oximetry 97 95 Oxygen Delivery Method Room Air Room Air MDM - Wound/Laceration <Bennett Quiroz PA-C - Last Filed: 08/15/24 17:08> MDM Narrative Medical decision making narrative: ED course: This is a 74-year-old female presenting to the emergency department due to a possible infected ingrown toenail. Patient was diabetic. We will attempt treatment with recommendations for warm water soaks and oral antibiotics. Patient was speak with the primary care provider about a referral to Podiatry. No spreading erythema the foot or any systemic symptoms. Vitals within normal limits. CC: Ingrown toenail Complicating co-morbidities: History of diabetes Data collected from: Previous notes Medical records reviewed: Patient was last seen in the ED roughly a year ago due to a cerebral parenchymal hemorrhage. History of diabetes type 2, hypertension, hypothyroidism. History of bipolar disorder, osteopenia. Repeat head CT showed no changes. Eventually discharged home. Differential considered, but not limited to: Infected ingrown toenail, osteomyelitis, cellulitis Exam documented above, pertinent findings include: As above Lab Test results independently reviewed as above. Pertinent findings: None obtained Imaging studies independently reviewed: None obtained Scores Used: None MIPS Elements: None Consultations: None Treatments: None Re-evaluations: No Discussion: Discussed plan with the patient was comfortable with the plan Diagnosis: Ingrown toenail Disposition: see below, along with detailed discharge instructions that have been reviewed with patient as well as indications for ED re-evaluation and additional outpatient follow up Discharge Plan Departure Patient Disposition: Home Clinical Impression: Ingrown toenail Instructions: DI for Ingrown Toenail, DI for Infected Ingrown Toenail Activity Restrictions/Additional Instructions: Thank you for coming to the [facility] Emergency Department today. As we discussed please take the oral antibiotics to avoid any kind of infection affecting her toe. Please speak with the primary care provider about a possible referral to podiatry if your symptoms continue. Please read the attached instructions for ways he can help with the ingrown toenail. Please return to the emergency department if you develop any fevers, redness spreading up the of the foot, or any other concerning signs or symptoms. I hope you feel better soon. Please follow up with your primary care provider within a week if your symptoms continue. If you do not have a primary care provider please contact the [facility] Resource line at [phone]. They will ask some questions about your medical history and help you get set up with a provider in the community. Prescriptions: New cephalexin 500 mg capsule 500 mg PO QID Qty: 28 0RF No Action Spacer: Inhaler Spacer Device BID Qty: 1 0RF CPAP: CPAP/PAP Full Face Mask Qty: 1 0RF (DME) Glucose Test Strips Qty: 100 12RF Dose Instruction: As directed Rx Instructions: Test blood sugars 3 times daily pioglitazone 15 mg tablet See Rx Instructions .ROUTE .COMPLEX Qty: 90 3RF Dose Instruction: TAKE 15 MG BY MOUTH DAILY Rx Instructions: TAKE 15 MG BY MOUTH DAILY Jardiance 10 mg tablet 10 mg PO DAILY Qty: 90 3RF levothyroxine 137 mcg tablet See Rx Instructions .ROUTE .COMPLEX Qty: 90 2RF Dose Instruction: TAKE ONE TABLET DAILY Rx Instructions: TAKE ONE TABLET DAILY duloxetine 30 mg capsule,delayed release(DR/EC) See Rx Instructions .ROUTE .COMPLEX Qty: 90 2RF Dose Instruction: TAKE ONE CAPSULE BY MOUTH ONCE DAILY Rx Instructions: TAKE ONE CAPSULE BY MOUTH ONCE DAILY sodium,potassium,mag sulfates [Suprep Bowel Prep Kit] 17.5-3.13-1.6 gram recon soln See Rx Instructions PO .COMPLEX Qty: 354 0RF Rx Instructions: take as directed by Physician lamotrigine [Lamictal] 200 mg tablet 200 mg PO BID Qty: 180 3RF omeprazole 20 mg capsule,delayed release(DR/EC) See Rx Instructions .ROUTE .COMPLEX Qty: 180 2RF Dose Instruction: TAKE 20 MG BY MOUTH TWICE A DAY Rx Instructions: TAKE 20 MG BY MOUTH TWICE A DAY trazodone 100 mg tablet 100 - 200 mg PO BEDTIME Qty: 60 2RF hydrochlorothiazide 25 mg tablet See Rx Instructions .ROUTE .COMPLEX Qty: 90 1RF Dose Instruction: TAKE ONE HALF (1/2) TABLET BY MOUTH TWICE A DAY Rx Instructions: TAKE ONE HALF (1/2) TABLET BY MOUTH TWICE A DAY Pt needs appt w/provider for further refills duloxetine 60 mg capsule,delayed release(DR/EC) See Rx Instructions .ROUTE .COMPLEX Qty: 90 2RF Dose Instruction: TAKE ONE CAPSULE BY MOUTH ONCE DAILY Rx Instructions: TAKE ONE CAPSULE BY MOUTH ONCE DAILY atorvastatin 20 mg tablet See Rx Instructions .ROUTE .COMPLEX Qty: 90 2RF Dose Instruction: TAKE ONE TABLET BY MOUTH BEDTIME Rx Instructions: TAKE ONE TABLET BY MOUTH BEDTIME Janumet 50-1,000 mg tablet 1 tab PO BID Qty: 180 3RF (DME) Disabled Parking Placard Qty: 1 0RF Rx Instructions: Qualifies for Disabled Parking Placard valacyclovir 500 mg tablet 1,000 mg PO BID (DME) lancets Qty: 100 3RF Dose Instruction: As directed Rx Instructions: Test blood sugar three times a day. aspirin [Adult Low Dose Aspirin] 81 mg tablet,delayed release (DR/EC) 81 mg PO DAILY baclofen 10 mg tablet 10 mg PO BID hydrocodone-acetaminophen 5-325 mg tablet 1 tab PO Q6H PRN (Reason: Pain (Scale Score 7-10)) gabapentin 300 mg capsule 600 mg PO BID morphine 15 mg tablet extended release 15 mg PO BID lidocaine [Blue-Emu Lidocaine Patch] topical albuterol sulfate 90 mcg/actuation HFA aerosol inhaler 2 puff inhalation Q6H PRN (Reason: shortness of breath or wheezing) Qty: 6.7 2RF Flovent HFA 110 mcg/actuation HFA aerosol inhaler 2 puff INHALATION BID PRN (Reason: Asthma) Qty: 12 5RF terbinafine HCl 250 mg tablet 250 mg PO DAILY Qty: 90 1RF Referrals: Elver Liu, [Primary Care Provider] - Stand Alone Forms: Patient Portal/API ED Sign-out <Amanda Christianson MD - Last Filed: 08/15/24 18:15> Cosign ED Attending Cosignature Attestation: I was immediately available in the department for consultation throughout this patient's visit. Amanda Christianson MD
[2024-08-15 17:13] VITALS: BP 142/63; PULSE 52; RESP 18; O2SAT 95
== END 2024-08-15 17:16 | disposition home or self-care (01) ==
PROVIDERS: Emergency Provider Physician Assistant Medical; PCP Family Medicine
DX: L60.0 Ingrowing nail (principal)
CPT/HCPCS: 99281

== ENCOUNTER → 2025-03-15 13:26 | Outpatient (CLI) | payer MEDICARE, MEDICAID, SELFPAY ==
--- NOTE | 2025-03-15 13:28 | DI.CT.S_ITS ---
PROCEDURE: CT HEAD/BRAIN WO CON INDICATIONS: Headache, frequent falls, hx of cerebral contusion TECHNIQUE: Noncontrast 4.5 mm thick angled axial sections acquired from the foramen magnum to the vertex, with coronal and sagittal reformats. For radiation dose reduction, the following was used: automated exposure control, adjustment of mA and/or kV according to patient size. COMPARISON: [facility], CT, CT HEAD/BRAIN WO CON, 05/29/2023, 20:51. [facility], CT, CT HEAD/BRAIN WO CON, 05/29/2023, 15:08. FINDINGS: Image quality: Diagnostic. CSF spaces: Basal cisterns are patent. No extra-axial fluid collections. The ventricles are symmetric in size and shape. Brain: Re-identified nonspecific bilateral globus pallidi calcifications (2/15). No intracranial bleeds or mass effect. There is cerebral volume loss, with resultant ventricular and sulcal prominence. There are periventricular and deep white matter chronic small vessel ischemic changes. There is intracranial internal carotid artery atherosclerosis. Skull and face: Calvarium and visualized facial bones appear intact, without suspicious lesions. Sinuses: Visualized sinuses and mastoids are clear. IMPRESSION: No acute intracranial pathology. No significant change compared to 05/29/2023. Dictated by: Jorge Melo M.D. on 03/16/2025 at 20:04 Approved by: Jorge Melo M.D. on 03/16/2025 at 20:06
== END ==
LOC: CT 13:27
PROVIDERS: PCP Family Medicine; Referring Provider Physician Assistant; Visit Provider Physician Assistant
DX: R51.9 Headache, unspecified (principal); I65.29 Occlusion and stenosis of unspecified carotid artery; R29.6 Repeated falls
CPT/HCPCS: 70450

== ENCOUNTER → 2025-07-14 15:26 | Outpatient (CLI) | payer MEDICARE, MEDICAID, SELFPAY ==
[2025-07-14 16:27] LABS: Free T4, Direct Thyroxine 1.54 ng/dL (0.78-2.19)
[2025-07-14 16:41] LABS: Thyroid Stimulating Hormone 0.946 uIU/mL (0.47-4.68)
== END ==
PROVIDERS: PCP Family Medicine; Referring Provider Family Medicine; Visit Provider Family Medicine
DX: I10 Essential (primary) hypertension (principal); E78.2 Mixed hyperlipidemia; E03.9 Hypothyroidism, unspecified
CPT/HCPCS: 36415; 84439; 84443